=== PATIENT | male | born 1985 | race American Indian/Alaskan Native ===

== ENCOUNTER 2017-07-28 23:06 | Emergency (ER) | payer MEDICAID ==
[2017-07-29 00:48] LABS: Basophils # (Auto) 0.1 K/mm3 (0.0-0.1); Basophils % (Auto) 0.9 % (0.0-1.8); Eosinophils # (Auto) 0.1 K/mm3 (0.0-0.4); Eosinophils % (Auto) 2.2 % (0.0-4.3); Hematocrit 43.7 % (35.5-45.6); Hemoglobin 14.7 gm/dl (11.8-15.2); Lymphocytes # (Auto) 2.7 K/mm3 (1.2-5.4); Lymphocytes % (Auto) 44.6 % (13.4-35.0); Mean Corpuscular HGB Conc 34 % (32-34); Mean Corpuscular Hemoglobin 29 pg (28-32); Mean Corpuscular Volume 85 fl (84-94); Monocytes # (Auto) 0.3 K/mm3 (0.0-0.8); Monocytes % (Auto) 5.3 % (0.0-7.3); Platelet Count 269 K/mm3 (140-440); Red Blood Count 5.15 M/mm3 (3.65-5.03); Red Cell Distribution Width 14.1 % (13.2-15.2)
[2017-07-29 01:10] LABS: BUN/Creatinine Ratio 9; Blood Urea Nitrogen 11 mg/dL (9-20); Calcium 9.3 mg/dL (8.4-10.2); Hemolysis Index 23
[2017-07-29] MEDS ORDERED: MILK OF MAGNESIA PO PRN (01:45)
[2017-07-29] MEDS ORDERED: TYLENOL PO PRN (01:45)
[2017-07-29] MEDS ORDERED: ALUM-MAG HYDROX-SIMETH 200-200-20MG/5ML PO PRN (01:45)
--- NOTE | 2017-07-29 01:51 | Emergency Department Report ---
HPI - General Chief Complaint: Psych Time Seen by Provider: 07/29/17 01:44 - HPI HPI: The patient is 32-year-old male with a history of schizophrenia who presents for evaluation of mental health. The patient reports constant severe sadness and feelings of hopelessness for the past 2-3 days, associated with suicidal ideations and hearing voices. The patient denies fever, headache, unexplained weight loss or weight gain, heat or cold intolerance, skin, hair, or nail changes, neuro deficits, homicidal ideations, or visual hallucinations. ED Past Medical Hx - Past Medical History Previous Medical History?: Yes Hx Psychiatric Treatment: Yes (paranoid schiz) - Surgical History Past Surgical History?: Yes Additional Surgical History: arm - Social History Smoking Status: Current Every Day Smoker Substance Use Type: None ED Review of Systems ROS: Stated complaint: SI Other details as noted in HPI Constitutional: denies: fever ENT: denies: throat or neck pain Respiratory: denies: cough, shortness of breath Cardiovascular: denies: chest pain Endocrine: denies unexplained weight loss or gain Gastrointestinal: denies: abdominal pain, nausea Genitourinary: denies: dysuria Musculoskeletal: denies: leg swelling Skin: denies: rash Neurological: denies: headache Hematological/Lymphatic: denies: easy bleeding or easy bruising Psych:reports sadness or hopelessness Physical Exam - Physical Exam Vital Signs: Vital Signs 07/29/17 00:22 Temperature 97.7 F Pulse Rate 57 L Respiratory 20 Rate Blood Pressure 122/80 O2 Sat by Pulse 99 Oximetry Physical Exam: General: well-nourished, well-developed, no acute distress Head: Normocephalic, atraumatic Eyes: normal sclera ENT: Mucous membranes are pink and moist Neck: trachea midline, neck supple, No neck stiffness, no cervical adenopathy Respiratory: Breath sounds equal bilaterally, no wheezing, rales, or rhonchi Cardio: S1 and S2 present, no murmurs, rubs, gallops, capillary refill is brisk Abdomen: Normoactive bowel sounds, soft abdomen, no rigidity, no guarding or rebound tenderness Musc: No pitting edema Skin: No rash Neuro: no facial drooping, normal speech Psych: Flat affect, poor insight, depressed mood, positive suicidal ideation ED Course Vital Signs 07/29/17 00:22 Temperature 97.7 F Pulse Rate 57 L Respiratory 20 Rate Blood Pressure 122/80 O2 Sat by Pulse 99 Oximetry ED Medical Decision Making - Lab Data Result diagrams: 07/29/17 00:33 07/29/17 00:33 - Medical Decision Making The patient was seen and examined by myself. The patient is placed on a court monitor and continuous pulse ox. On initial evaluation, the patient was found to be in no distress. Labs are obtained. Lab results are grossly unremarkable. The patient is medically clear. Mental health is consulted. Mental health evaluates the patient and agrees that the patient is at risk of harm to self. A 1013 is completed. The patient will be admitted to a psychiatric facility once bed placement is obtained. Critical care attestation.: If time is entered above; I have spent that time in minutes in the direct care of this critically ill patient, excluding procedure time. ED Disposition Clinical Impression: Acute schizophrenia, Suicidal ideation Disposition: DC/TX-65 PSY HOSP/PSY UNIT Is pt being admited?: No Does the pt Need Aspirin: No Condition: Serious Referrals: ARACELI CHA MD [Primary Care Provider] - 3-5 Days Time of Disposition: 01:46
[2017-07-29 10:51] LABS: Bilirubin,Urine NEG (Negative); Blood,Urine NEG (Negative); Color,Urine Yellow (Yellow); Mucus,Urine FEW /HPF; Protein,Urine <15 mg/dL mg/dL (Negative); WBC,Urine < 1.0 /HPF (0.0-6.0)
[2017-07-29 11:10] LABS: Amphetamine Screen,Urine PRESUMPTIVE NEGATIVE; Benzodiazepines Screen,Urine PRESUMPTIVE NEGATIVE; Cannabinoid Screen,Urine PRESUMPTIVE NEGATIVE; Methadone Screen,Urine PRESUMPTIVE NEGATIVE; Opiate Screen,Urine PRESUMPTIVE NEGATIVE
[2017-07-29 11:24] LABS: Cocaine Screen,Urine PRESUMPTIVE POSITIVE
--- NOTE | 2017-07-29 15:07 | Consultation ---
History of Present Illness - Reason for Consult Consult date: 07/29/17 Reason for consult: Mental Health Evaluation Requesting physician: KVNG POP - Chief Complaint Chief complaint: "I am tired of everything" - History of Present Psychiatric Illness 32 y.o. AA male presenting to [facility] for SI's and AH's. Today the patient is calm , but withdrawn during the assessment. He stated that he is tired of his life and want to move out of [place]. He stated that he is experiencing voices telling him he's "worthless." He would not elaborate more about being worthless when asked. I had to interject several times during the interview, because the patient was tangent and very talkative. He would not confirm or deny being suicidal. He stated that he took Seroquel when he was hospitalized several months ago. He stated that he does not have a psychiatrist at this time. He denies HI's and VH's. He denies a poor appetite, but admitted to erratic sleep. He rate his depression 7/10, with 10 being the worse. He denies recreational drug use, but positive for cocaine. He denies excessive alcohol consumption ( etoh). Medications and Allergies Allergies Allergy/AdvReac Type Severity Reaction Status Date / Time No Known Allergies Allergy Unverified 07/29/17 00:22 Active Meds: Active Medications Acetaminophen (Tylenol) 650 mg PO Q4HR PRN PRN Reason: Pain MILD(1-3)/Fever >100.5/NOGUERA Al Hydrox/Mg Hydrox/Simethicone (Alum-Mag Hydrox-Simeth 252-031-21on/5ml) 30 ml PO Q4HR PRN PRN Reason: Indigestion Magnesium Hydroxide (Milk Of Magnesia) 30 ml PO Q12HR PRN PRN Reason: Constipation Past psychiatric history - Past Medical History Past Medical History: other (Fx wrist) Past Surgical History: No surgical history - past Psychiatric treatment and history psychiatric treatment history: Multiple inpatient psy services. He cannot confirm or deny a fam psy hx. - Social History Social history: lives with family Mental Status Exam - Vital signs Last Vital Signs Temp 97.7 F 07/29/17 00:22 Pulse 57 L 07/29/17 00:22 Resp 20 07/29/17 10:27 BP 122/80 07/29/17 00:22 Pulse Ox 99 07/29/17 10:27 - Exam Narrative exam: MSE: Appearance: calm Behavior: regular eye contact Speech: hyper verbal Mood: "depressed" Affect: congruent to mood Thought Process: circumstantial Thought Content: denies HI's and VH's Motor Activity: ambulatory Cognition: A/O x3 Insight: variable Judgment: variable Results Result Diagrams: 07/29/17 00:33 07/29/17 00:33 Abnormal lab results 07/29/17 07/29/17 07/29/17 Range/Units 00:33 00:33 00:33 RBC 5.15 H (3.65-5.03) M/mm3 Lymph % (Auto) 44.6 H (13.4-35.0) % Glucose 127 H (75-100) mg/dL Salicylates < 0.3 L (2.8-20.0) mg/dL All other labs normal. Assessment and Plan Assessment and plan: Impression: Unspecified Mood DO with psy features. Substance Use DO (cocaine). Today the patient is calm, but withdrawn during the assessment. DDx: Bipolar DO, R/O Schizoaffective DO, R/O MDD with psychosis Recommendation/Plan: Continue 1013 with placement to inpatient psy services. Start Seroquel 200 mg PO HS for mood/psychosis. Discussed possible metabolic side effects of Seroquel with patient.
--- NOTE | 2017-07-30 17:05 | Progress Note ---
Subjective - Reason for Consult Consult date: 07/30/17 Reason for consult: follow up - Chief Complaint Chief complaint: "I'm not good." 32 y.o. AA male presenting to [facility] for SI's and AH's. During previous assessments, the record indicates he stated that he is tired of his life and want to move out of [place]. Per the record he stated that he is experiencing voices telling him he's "worthless." His behavior was threatening. Staff had to intervene. He is agitated and further information was not able to be obtained from him today. Mental Status Exam - Vital signs Last Vital Signs Temp 98.2 F 07/30/17 07:50 Pulse 76 07/30/17 07:50 Resp 20 07/30/17 13:54 BP 120/75 07/30/17 07:50 Pulse Ox 100 07/30/17 13:54 - Exam Narrative exam: MSE: Appearance: agitated Behavior: regular eye contact Speech: loud Mood: agitated Affect: congruent to mood Thought Process: tangential Thought Content: unable to assess Motor Activity: ambulatory Cognition: A/O x3 Insight: variable Judgment: variable Assessment and Plan Impression: Unspecified Mood DO with psy features. Substance Use DO (cocaine). Today the patient is calm, but withdrawn during the assessment. DDx: Bipolar DO, R/O Schizoaffective DO, R/O MDD with psychosis Recommendation/Plan: Continue 1013 with placement to inpatient psy services. Continue Seroquel 200 mg PO HS for mood/psychosis.
--- NOTE | 2017-07-31 16:13 | Progress Note ---
Subjective - Reason for Consult Consult date: 07/31/17 Reason for consult: follow up - Chief Complaint Chief complaint: "I'm about the same." 32 y.o. AA male presenting to [facility] for SI's and AH's. During previous assessments, the record indicates he stated that he is tired of his life and want to move out of [place]. Per the record he stated that he is experiencing voices telling him he's "worthless." The record indicates he was verbally aggressive with staff. He was willing to participate in interview today. He reports being easily agitated and hearing voices. He also reports suicidal ideation and homicidal ideation. HI is for no one in particular. Mental Status Exam - Vital signs Last Vital Signs Temp 98.0 F 07/30/17 20:52 Pulse 76 07/31/17 09:39 Resp 18 07/31/17 09:39 BP 101/53 07/31/17 09:39 Pulse Ox 97 07/30/17 20:52 - Exam Narrative exam: MSE: Appearance: agitated Behavior: regular eye contact Speech: regular rate/rhythm Mood: agitated Affect: congruent to mood Thought Process: logical Thought Content: SI/HI and AH Motor Activity: ambulatory Cognition: A/O x3 Insight: variable Judgment: variable Assessment and Plan Impression: Unspecified Mood DO with psy features. Substance Use DO (cocaine). Today the patient is calm and cooperative during the assessment. DDx: Bipolar DO, R/O Schizoaffective DO, R/O MDD with psychosis Recommendation/Plan: Continue 1013 with placement to inpatient psy services. Increase seroquel to 300mg PO HS for mood/psychosis.
[2017-07-31] MEDS ORDERED: ATIVAN IM PRN (20:43)
[2017-08-01 08:42] VITALS: BP 104/54
--- NOTE | 2017-08-01 09:55 | Progress Note ---
Subjective - Reason for Consult Consult date: 08/01/17 Reason for consult: Psychiatry Follow-up - Chief Complaint Chief complaint: "I am in bad shape" 32 y.o. AA male presenting to [facility] for SI's and AH's. During previous assessments, the record indicates he stated that he is tired of his life and want to move out of [place]. Today the patient is calm during the assessment. He stated that he "hate" the staff and want to leave. He stated that the voices are still active and he endorses SI's without a plan. He denies HI's and VH's. He denies any side effects of his medication. Mental Status Exam - Vital signs Last Vital Signs Temp 98 F 08/01/17 08:41 Pulse 55 L 08/01/17 08:41 Resp 14 08/01/17 08:41 BP 104/54 08/01/17 08:41 Pulse Ox 97 08/01/17 08:41 - Exam Narrative exam: MSE: Appearance: calm Behavior: regular eye contact Speech: regular rate and tone Mood: "okay" Affect: congruent to mood Thought Process: circumstantial Thought Content: denies HI's and VH's Motor Activity: ambulatory Cognition: A/O x3 Insight: variable Judgment: variable Assessment and Plan Impression: Unspecified Mood DO with psy features. Substance Use DO (cocaine). Today the patient is calm and cooperative during the assessment. DDx: Bipolar DO, R/O Schizoaffective DO, R/O MDD with psychosis Recommendation/Plan: Continue 1013 with placement to [facility] today, pending transport time. Continue Seroquel to 300mg PO HS for mood/psychosis. Discussed possible metabolic side effects of Seroquel with patient.
== END 2017-08-01 13:40 ==
LOC: ED 23:06 → EEVIPCON 23:06 → ED 08-01 13:40
DX: F20.9 Schizophrenia, unspecified (principal); F14.10 Cocaine abuse, uncomplicated; F17.200 Nicotine dependence, unspecified, uncomplicated; Z79.899 Other long term (current) drug therapy
CPT/HCPCS: 36415; 80048; 80307; 81001; 85025; 99285; G0480; J2060; 80320; 99284

== ENCOUNTER 2017-08-28 17:30 | Emergency (ER) | payer MEDICAID ==
[2017-08-28 17:42] VITALS: BP 128/90
[2017-08-28] MEDS ORDERED: MOTRIN PO ONE (18:03)
--- NOTE | 2017-08-28 18:08 | Emergency Department Report ---
ED ENT HPI - General Chief complaint: Dental/Oral Stated complaint: TOOTHACHE Time Seen by Provider: 08/28/17 17:45 Source: patient Mode of arrival: Ambulatory Limitations: No Limitations - History of Present Illness Initial comments: This is a 32-year-old male nontoxic, well nourished in appearance, no acute signs of distress presents to the ED with c/o of toothache. Patient stated this is acute on chronic toothache and symptoms reoccurred 3-4 days ago. Patient denies any facial swelling, drooling, hoarseness, numbness, tingling, chest pain, shortness of breath, back pain, headache or stiff neck. Patient denies any allergies or significant past medical history. MD complaint: tooth pain -: days(s) (4) Location: tooth # 1 - pain Severity: mild Severity scale (0 -10): 8 Quality: aching Consistency: constant Improves with: none Worsens with: none Associated Symptoms: gum swelling, toothache. denies: fever, cough, pain with swallowing, sore throat, tinnitus, hearing loss, discharge from ear, rhinorrhea - Related Data Previous Rx's Medication Instructions Recorded Last Taken Type Amoxicillin/Potassium Clav 1 each PO Q12H #20 tablet 08/28/17 Unknown Rx [Augmentin 500-125 Tablet] Chlorhexidine Mouthwash [Peridex] 15 ml MM BID #1 bottle 08/28/17 Unknown Rx Ibuprofen [Motrin] 600 mg PO Q8H PRN #30 tablet 08/28/17 Unknown Rx Allergies Allergy/AdvReac Type Severity Reaction Status Date / Time No Known Allergies Allergy Unverified 07/29/17 00:22 ED Dental HPI - General Chief complaint: Dental/Oral Stated complaint: TOOTHACHE Time Seen by Provider: 08/28/17 17:45 Source: patient Mode of arrival: Ambulatory Limitations: No Limitations - Related Data Previous Rx's Medication Instructions Recorded Last Taken Type Amoxicillin/Potassium Clav 1 each PO Q12H #20 tablet 08/28/17 Unknown Rx [Augmentin 500-125 Tablet] Chlorhexidine Mouthwash [Peridex] 15 ml MM BID #1 bottle 08/28/17 Unknown Rx Ibuprofen [Motrin] 600 mg PO Q8H PRN #30 tablet 08/28/17 Unknown Rx Allergies Allergy/AdvReac Type Severity Reaction Status Date / Time No Known Allergies Allergy Unverified 07/29/17 00:22 ED Review of Systems ROS: Stated complaint: TOOTHACHE Other details as noted in HPI Constitutional: denies: chills, fever Eyes: denies: eye pain, eye discharge, vision change ENT: dental pain. denies: ear pain, throat pain Respiratory: denies: cough, shortness of breath, wheezing Cardiovascular: denies: chest pain, palpitations Endocrine: no symptoms reported Gastrointestinal: denies: abdominal pain, nausea, diarrhea Genitourinary: denies: urgency, dysuria Musculoskeletal: denies: back pain, joint swelling, arthralgia Skin: denies: rash, lesions Neurological: denies: headache, weakness, paresthesias Psychiatric: denies: anxiety, depression Hematological/Lymphatic: denies: easy bleeding, easy bruising ED Past Medical Hx - Past Medical History Previous Medical History?: Yes Hx Psychiatric Treatment: Yes (paranoid schiz) - Surgical History Past Surgical History?: Yes Additional Surgical History: arm , left thumb surgery - Social History Smoking Status: Current Every Day Smoker Substance Use Type: Marijuana - Medications Home Medications: Home Medications Medication Instructions Recorded Confirmed Last Taken Type Amoxicillin/Potassium Clav 1 each PO Q12H #20 tablet 08/28/17 Unknown Rx [Augmentin 500-125 Tablet] Chlorhexidine Mouthwash [Peridex] 15 ml MM BID #1 bottle 08/28/17 Unknown Rx Ibuprofen [Motrin] 600 mg PO Q8H PRN #30 tablet 08/28/17 Unknown Rx ED Physical Exam - General Limitations: No Limitations General appearance: alert, in no apparent distress - Head Head exam: Present: atraumatic, normocephalic - Eye Eye exam: Present: normal appearance Pupils: Present: normal accommodation - ENT ENT exam: Present: mucous membranes moist, TM's normal bilaterally, normal external ear exam - Expanded ENT Exam Expanded Ear exam: Present: normal external inspection Mouth exam: Present: normal external inspection, tongue normal. Absent: drooling, trismus, muffled voice, tongue elevation, laceration Teeth exam: Present: dental caries, dental tenderness #, gingival enlargement, other (no facial swelling) 1 - Dental Tenderness Throat exam: Positive: normal inspection, other (Uvula midline. No abscess or swelling noted. ). Negative: tonsillar erythema, tonsillomegaly, tonsillar exudate, R peritonsillar mass, L peritonsillar mass - Neck Neck exam: Present: normal inspection, full ROM. Absent: tenderness, meningismus, lymphadenopathy - Respiratory Respiratory exam: Present: normal lung sounds bilaterally. Absent: respiratory distress - Cardiovascular Cardiovascular Exam: Present: regular rate, normal rhythm. Absent: systolic murmur, diastolic murmur, rubs, gallop - GI/Abdominal GI/Abdominal exam: Present: soft, normal bowel sounds - Rectal Rectal exam: Present: deferred - Extremities Exam Extremities exam: Present: normal inspection, full ROM, normal capillary refill - Back Exam Back exam: Present: normal inspection, full ROM - Neurological Exam Neurological exam: Present: alert, oriented X3, normal gait - Psychiatric Psychiatric exam: Present: normal affect, normal mood - Skin Skin exam: Present: warm, dry, intact, normal color. Absent: rash ED Course Vital Signs 08/28/17 17:39 Temperature 98.1 F Pulse Rate 94 H Respiratory 20 Rate Blood Pressure 128/90 O2 Sat by Pulse 98 Oximetry - Reevaluation(s) Reevaluation #1: 08/28/17 18:06 Patient is speaking in full sentences with no signs of distress noted. Critical care attestation.: If time is entered above; I have spent that time in minutes in the direct care of this critically ill patient, excluding procedure time. ED Disposition Clinical Impression: Toothache, Gingivitis Disposition: - TO HOME OR SELFCARE Is pt being admited?: No Does the pt Need Aspirin: No Condition: Stable Instructions: Toothache (ED), Gingivitis (ED), Ibuprofen (By mouth), Amoxicillin/Clavulanate Potassium (By mouth) Additional Instructions: Follow-up with a dentist in 3-5 days or if symptoms worsen and continue return to emergency room as soon as possible. Prescriptions: Amoxicillin/Potassium Clav [Augmentin 500-125 Tablet] 1 each PO Q12H #20 tablet Chlorhexidine Mouthwash [Peridex] 15 ml MM BID #1 bottle Ibuprofen [Motrin] 600 mg PO Q8H PRN #30 tablet PRN Reason: Pain Referrals: PRIMARY CARE, [Primary Care Provider] - 3-5 Days WILIAN SAHNI MD [Staff Physician] - 3-5 Days [facility] [Outside] - 3-5 Days Forms: Work/School Release Form(ED)
== END 2017-08-28 18:16 | disposition home or self-care (01) ==
LOC: ED 17:30
DX: K05.10 Chronic gingivitis, plaque induced (principal); F17.200 Nicotine dependence, unspecified, uncomplicated; F12.10 Cannabis abuse, uncomplicated
CPT/HCPCS: 99282

== ENCOUNTER 2017-09-10 02:39 | Emergency (ER) | payer MEDICAID ==
[2017-09-10 03:47] LABS: Basophils # (Auto) 0.1 K/mm3 (0.0-0.1); Basophils % (Auto) 0.7 % (0.0-1.8); Eosinophils # (Auto) 0.3 K/mm3 (0.0-0.4); Hematocrit 43.3 % (35.5-45.6); Hemoglobin 14.8 gm/dl (11.8-15.2); Lymphocytes # (Auto) 1.9 K/mm3 (1.2-5.4); Mean Corpuscular HGB Conc 34 % (32-34); Mean Corpuscular Hemoglobin 29 pg (28-32); Mean Corpuscular Volume 84 fl (84-94); Monocytes # (Auto) 0.4 K/mm3 (0.0-0.8); Monocytes % (Auto) 5.3 % (0.0-7.3); Platelet Count 256 K/mm3 (140-440); Red Blood Count 5.18 M/mm3 (3.65-5.03); Red Cell Distribution Width 13.8 % (13.2-15.2)
[2017-09-10 04:06] LABS: BUN/Creatinine Ratio 7; Blood Urea Nitrogen 8 mg/dL (9-20); Calcium 9.1 mg/dL (8.4-10.2); Hemolysis Index 4
[2017-09-10 05:21] LABS: Bilirubin,Urine NEG (Negative); Blood,Urine NEG (Negative); Color,Urine Straw (Yellow); Mucus,Urine FEW /HPF; Protein,Urine <15 mg/dL mg/dL (Negative); Urobilinogen,Urine < 2.0 mg/dL (<2.0); WBC,Urine < 1.0 /HPF (0.0-6.0)
[2017-09-10 05:30] LABS: Amphetamine Screen,Urine PRESUMPTIVE NEGATIVE; Benzodiazepines Screen,Urine PRESUMPTIVE NEGATIVE; Cannabinoid Screen,Urine PRESUMPTIVE NEGATIVE; Methadone Screen,Urine PRESUMPTIVE NEGATIVE; Opiate Screen,Urine PRESUMPTIVE NEGATIVE
[2017-09-10 05:42] LABS: Cocaine Screen,Urine PRESUMPTIVE POSITIVE
[2017-09-10] MEDS ORDERED: NACL 0.9% 1000 ML 1,000 ML IV ONE (08:18)
[2017-09-10] MEDS ORDERED: ALUM-MAG HYDROX-SIMETH 200-200-20MG/5ML PO PRN (08:19)
[2017-09-10] MEDS ORDERED: TYLENOL PO PRN (08:19)
[2017-09-10] MEDS ORDERED: MILK OF MAGNESIA PO PRN (08:19)
--- NOTE | 2017-09-10 08:21 | Emergency Department Report ---
HPI - General Chief Complaint: Psych Time Seen by Provider: 09/10/17 04:14 - HPI HPI: The patient is a 32-year-old male with a history of depression, presents for mental health evaluation. The patient reports 1 day of recurrence of constant severe depression and hopelessness, exacerbated with drug use, associated with suicidal ideations. He denies having a plan for completion of suicide. The patient denies fever, headache, unexplained weight loss or weight gain, heat or cold intolerance, skin, hair, or nail changes, neuro deficits, homicidal ideations, or auditory or visual hallucinations. ED Past Medical Hx - Past Medical History Previous Medical History?: Yes Hx Psychiatric Treatment: Yes (paranoid schiz) - Surgical History Past Surgical History?: Yes Additional Surgical History: arm , left thumb surgery - Social History Smoking Status: Current Every Day Smoker Substance Use Type: Cocaine, Marijuana - Medications Home Medications: Home Medications Medication Instructions Recorded Confirmed Last Taken Type No Known Home Medications [No 09/10/17 09/10/17 Unknown History Reported Home Medications] ED Review of Systems ROS: Stated complaint: SI/HI, HEARING VOICES Other details as noted in HPI Constitutional: denies: fever ENT: denies: throat or neck pain Respiratory: denies: cough, shortness of breath Cardiovascular: denies: chest pain Endocrine: denies unexplained weight loss or gain Gastrointestinal: denies: abdominal pain, nausea Genitourinary: denies: dysuria Musculoskeletal: denies: leg swelling Skin: denies: rash Neurological: denies: headache Hematological/Lymphatic: denies: easy bleeding or easy bruising Psych: reports sadness or hopelessness Physical Exam - Physical Exam Vital Signs: Vital Signs 09/10/17 09/10/17 02:45 03:52 Temperature 98.4 F 98.3 F Pulse Rate 110 H 99 H Respiratory 20 18 Rate Blood Pressure 141/91 121/79 O2 Sat by Pulse 96 96 Oximetry Physical Exam: General: well-nourished, well-developed, no acute distress Head: Normocephalic, atraumatic Eyes: normal sclera ENT: Mucous membranes are pale and dry Neck: No neck stiffness, no cervical adenopathy Respiratory: Breath sounds equal bilaterally, no wheezing, rales, or rhonchi Cardio: S1 and S2 present, no murmurs, rubs, gallops, capillary refill is delayed Abdomen: Normoactive bowel sounds, soft abdomen, no tenderness Chest WALL/Back: No tenderness to palpation of the chest wall, no CVA tenderness with percussion Musc: No pitting edema Skin: No rash Neuro: no facial drooping, normal speech Psych: Flat affect, depressed mood, poor insight, positive suicidal ideation ED Course Vital Signs 09/10/17 09/10/17 02:45 03:52 Temperature 98.4 F 98.3 F Pulse Rate 110 H 99 H Respiratory 20 18 Rate Blood Pressure 141/91 121/79 O2 Sat by Pulse 96 96 Oximetry ED Medical Decision Making - Lab Data Result diagrams: 09/10/17 03:06 09/10/17 03:06 - Medical Decision Making The patient was seen and examined by myself. The patient is placed on a hall monitor and continuous pulse ox. On initial evaluation, the patient was found to be in no distress. Labs are obtained. The patient is given 1 L normal saline fluid bolus for treatment of his dehydration and tachycardia. Lab results revealed positive cocaine drug screen and otherwise labs are grossly unremarkable. The patient is medically clear. Mental health is consulted. Mental health evaluates the patient and agrees that the patient is at risk of harm to self. A 1013 is completed. The patient will be admitted to a psychiatric facility once bed placement is obtained. Critical care attestation.: If time is entered above; I have spent that time in minutes in the direct care of this critically ill patient, excluding procedure time. ED Disposition Clinical Impression: Suicidal ideation, Depression with suicidal ideation, Dehydration, mild Disposition: DC/TX-65 PSY HOSP/PSY UNIT Is pt being admited?: No Does the pt Need Aspirin: No Condition: Fair Referrals: PRIMARY CARE [Primary Care Provider] - 3-5 Days Time of Disposition: 08:22
[2017-09-10] MEDS ORDERED: ATIVAN IM ONE (08:29)
[2017-09-10] MEDS ORDERED: BENADRYL ONE (09:48)
[2017-09-10] MEDS ORDERED: BENADRYL IV ONE (09:50)
[2017-09-10] MEDS ORDERED: ATIVAN IV ONE (09:50)
[2017-09-10] MEDS ORDERED: ATIVAN ONE ×2 (16:25→19:58)
[2017-09-10] MEDS ORDERED: ATIVAN PO ONE (16:28)
[2017-09-10] MEDS ORDERED: HALDOL ONE (19:59)
[2017-09-10] MEDS: BENADRYL IM PRN (20:05)
[2017-09-10] MEDS ORDERED: HALDOL IM PRN (20:10)
[2017-09-11] MEDS ORDERED: ATIVAN ONE (16:50)
--- NOTE | 2017-09-11 17:00 | Consultation ---
History of Present Illness - Reason for Consult Consult date: 09/11/17 Reason for consult: Initial Psychiatric Evaluation - Chief Complaint Chief complaint: "Paranoid, suicidal, and hearing voices." - History of Present Psychiatric Illness Jl is a 32-year-old -Iranian male who presents to the emergency for psychosis. He has a past psychiatric history of schizophrenia, paranoid type. He reports his symptoms have been getting progressively worse throughout the week. He endorses paranoid thoughts and auditory hallucinations. He verbalizes that the voices are saying things such as "why am I around" and "I should kill people." He denies visual hallucinations. Endorses homicidal ideation secondary to auditory hallucinations. Also, he has suicidal ideations with a plan to shoot self. Patient states "I want a gun." He reports increase energy, appropriate appetite, and decrease sleep. Current medications: Seroquel, Lexapro, Celexa. Past psychiatric history: Schizophrenia (2005); more than 5 previous inpatient hospitalizations (Formerly [facility]); No suicide attempts reported or noted; No outpatient psychiatrist. Past psychiatric medication trials: Zyprexa, Risperdal, Geodon. Patient states he will not take any of these medications. History of trauma/abuse: He denies sexual, mental, or physical abuse. Drug/alcohol abuse history: Marijuana-varies; last use-2 weeks ago; First use- 12 years old; Cocaine-varies (everday); last use- 3-4 weeks ago; First Use- 20 years old. Social history: Eighth grade; Disability/SSI approximately $700; 0 children; single; poor support system. Family history: Patient denies. Medications and Allergies Allergies Allergy/AdvReac Type Severity Reaction Status Date / Time No Known Allergies Allergy Unverified 07/29/17 00:22 Home Medications Medication Instructions Recorded Confirmed Last Taken Type No Known Home Medications [No 09/10/17 09/10/17 Unknown History Reported Home Medications] Active Meds: Active Medications Acetaminophen (Tylenol) 650 mg PO Q4HR PRN PRN Reason: Pain MILD(1-3)/Fever >100.5/NOGUERA Al Hydrox/Mg Hydrox/Simethicone (Alum-Mag Hydrox-Simeth [phone]/5ml) 30 ml PO Q4HR PRN PRN Reason: Indigestion Diphenhydramine HCl (Benadryl) 50 mg IM Q6H PRN PRN Reason: agitation Stop: 09/14/17 20:05 Last Admin: 09/10/17 20:05 Dose: 50 mg Haloperidol Lactate (Haldol) 5 mg IM Q6H PRN PRN Reason: Agitation Stop: 09/14/17 20:09 Last Admin: 09/10/17 20:08 Dose: 5 mg Magnesium Hydroxide (Milk Of Magnesia) 30 ml PO Q12HR PRN PRN Reason: Constipation Mental Status Exam - Vital signs Last Vital Signs Temp 98.1 F 09/11/17 12:51 Pulse 79 09/11/17 12:51 Resp 18 09/11/17 12:51 BP 109/84 09/11/17 12:51 Pulse Ox 97 09/11/17 12:51 - Exam Narrative exam: Mental Status Exam: General Appearance: Casually dressed-hospital gown Eye Contact: Intermittent Attitude/Behavior: Cooperative Sensorium: Distracted Orientation: Alert and oriented x 4 ( person, place, time, date, and situation) Psychomotor & Musculoskeletal Activity: Ambulatory Mood: " Anxious and down." Anxious, depressed, and irritable Affect: Constricted Speech/Language: Normal rate and tone Thought Process: Circumstantial Thought Content: Delusional-paranoid Perception: + AH Suicidal Ideation/Plan: " I want a gun." Homicidal Ideation/Plan " The people who keep messing with me." Judgment: Poor Insight: Poor Results Result Diagrams: 09/10/17 03:06 09/10/17 03:06 All other labs normal. Assessment and Plan Assessment and plan: Jl is a 32 year old AAM who presents to the emergency room with psychosis. PPHx of Schizophrenia, paranoid type. Today patient is anxious, depressed, and irritable. He endorses SI/HI and psychosis. DDx: Unspecified Psychosis r/o Schizophrenia r/o Schizoaffective Disorder, Bipolar Type Recommendations/plan: 1. Will continue 1013 and assist with placement to an inpatient psychiatric facility. 2. Begin Seroquel 50 mg by mouth daily at bedtime for psychosis/mood. Begin Celexa 10 mg by mouth every morning for depression and anxiety. 3. Educated patient on the black box warning for Celexa in regards to increase suicidal/homicidal thoughts as well as metabolic side effects in regards to Seroquel.
[2017-09-11] MEDS ORDERED: ATIVAN IV ONE (17:04)
[2017-09-12] MEDS: celeXA PO SCH (09:45)
[2017-09-12] MEDS: BENADRYL IM PRN (11:16)
--- NOTE | 2017-09-12 13:06 | Progress Note ---
Subjective - Reason for Consult Consult date: 09/12/17 Reason for consult: Psychiatry Follow-up - Chief Complaint Chief complaint: ""People need to leave me alone" 32-year-old -[place] male who presents to the emergency or psychosis. Today the patient is cooperative, but paranoid during the assessment. The patient had to be redirected several time to keep him on topic. He is delusional about "people" bothering him. He could not elaborate more when asked about these "people." He stated that the voices are telling him to kill himself. The patient pauses during the interview and look down the magana, possibly responding to some type of stimuli. He continue to endorse SI's, but he does not have a plan. He denies HI's and VH's. He denies any side effects of his medications. Mental Status Exam - Vital signs Last Vital Signs Temp 98.8 F 09/11/17 21:00 Pulse 94 H 09/11/17 21:00 Resp 18 09/11/17 21:00 BP 117/77 09/11/17 21:00 Pulse Ox 96 09/11/17 21:00 - Exam Narrative exam: MSE: Appearance: cooperative Behavior: regular eye contact Speech: regular rate and tone Mood: "okay" Affect: normal Thought Process: tangential Thought Content: denies SI/HI's and VH's, delusional, paranoia Motor Activity: ambulatory Cognition: A/O x3 Insight: poor Judgment: poor Assessment and Plan Impression: Unspecified Psychotic/Mood DO. Substance Use DO. Today the patient is cooperative, but paranoid during the assessment. The patient endorses SI's. QTC 398 09/12/2017. DDx: R/O Bipolar DO, R/O Schizoaffective DO, Schizophrenia, R/O MDD, R/O Substance Induced Psychotic/Mood DO Recommendation/Plan: Continue 1013 with placement to inpatient psy services. Increase Seroquel to 100 mg PO HS for psychosis/mood and continue Celexa 10 mg PO for depression. Discussed possible metabolic side effects of Seroquel. Discussed possible suicidality/medication induced emily with patient reference Celexa. Discussed possible QTC prolongation with patient reference Seroquel and Celexa.
[2017-09-13] MEDS: celeXA PO SCH (10:32)
[2017-09-13] MEDS ORDERED: DESYREL PO PRN (10:48)
--- NOTE | 2017-09-13 10:51 | Progress Note ---
Subjective - Reason for Consult Consult date: 09/13/17 Reason for consult: Psychiatry Follow-up - Chief Complaint Chief complaint: "People are still bothering me" 32-year-old -Burmese male who presents to the emergency or psychosis. Today the patient is cooperative, but still paranoid during the assessment. He stated that the voices are louder today and he would like for them to stop. He is adamant about wanting to be transferred to a mental health facility. He stated that he prefer a facility out of [place] to get away from "the people." He denies HI's and VH's. He stated not getting sleep last night. He denies any side effects of his medication. Mental Status Exam - Vital signs Last Vital Signs Temp 98.6 F 09/12/17 20:00 Pulse 85 09/12/17 20:00 Resp 18 09/12/17 20:00 BP 137/82 09/12/17 20:00 Pulse Ox 98 09/12/17 20:00 - Exam Narrative exam: MSE: Appearance: calm, cooperative Behavior: regular eye contact Speech: regular rate and tone Mood: "okay" Affect: normal Thought Process: tangential Thought Content: denies HI's and VH's, delusional, paranoia Motor Activity: ambulatory Cognition: A/O x3 Insight: poor Judgment: poor Assessment and Plan Impression: Unspecified Psychotic/Mood DO. Substance Use DO. Today the patient is cooperative, but still paranoid during the assessment. The patient endorses SI's. QTC 398 09/12/2017. DDx: R/O Bipolar DO, R/O Schizoaffective DO, Schizophrenia, R/O MDD, R/O Substance Induced Psychotic/Mood DO Recommendation/Plan: Continue 1013 with placement to inpatient psy services. Increase Seroquel to 200 mg PO HS for psychosis/mood and continue Celexa 10 mg PO for depression. Start Trazodone 50 mg PO HS PRN for sleep. Discussed possible metabolic side effects of Seroquel with patient. Discussed possible suicidality/medication induced emily with patient reference Celexa. Discussed possible QTC prolongation with patient reference Seroquel and Celexa.
[2017-09-13 12:44] VITALS: BP 113/76
== END 2017-09-13 14:19 ==
LOC: ED 02:39 → EEVIPCON 02:39 → ED 09-13 14:19
DX: R45.851 Suicidal ideations (principal); F20.0 Paranoid schizophrenia; E86.0 Dehydration; F14.10 Cocaine abuse, uncomplicated; F12.10 Cannabis abuse, uncomplicated; F17.200 Nicotine dependence, unspecified, uncomplicated
CPT/HCPCS: 36415; 80048; 80307; 81001; 85025; 96361; 96372; 96374; 96375; 96376; 99285; G0480; J1200; J1630; J2060; J7030; 80320

== ENCOUNTER 2017-09-27 10:38 | Emergency (ER) | payer MEDICAID ==
[2017-09-27 11:16] VITALS: BP 119/77
[2017-09-27] MEDS ORDERED: XYLOCAINE 1% MPF 5 mL INFILTRATI ONE (12:21)
[2017-09-27] MEDS ORDERED: ROCEPHIN IM ONE (12:21)
[2017-09-27] MEDS ORDERED: ZITHROMAX PO ONE (12:22)
--- NOTE | 2017-09-27 12:26 | Emergency Department Report ---
HPI - General Chief Complaint: Urogenital-Male Time Seen by Provider: 09/27/17 12:22 - HPI HPI: patient is here with penile discharge, consistent with prior gc/chlamydia infection. no fever, no n/v, no diarrhea, no chest pain or sob. ED Past Medical Hx - Past Medical History Previous Medical History?: Yes Hx Psychiatric Treatment: Yes (paranoid schiz) - Surgical History Past Surgical History?: Yes Additional Surgical History: arm , left thumb surgery - Social History Smoking Status: Current Every Day Smoker Substance Use Type: Alcohol - Medications Home Medications: Home Medications Medication Instructions Recorded Confirmed Last Taken Type metroNIDAZOLE [Metronidazole] 500 mg PO ACHS #20 tablet 09/27/17 Unknown Rx ED Review of Systems ROS: Stated complaint: DISCHARGE SARAH PENIS Other details as noted in HPI Comment: All other systems reviewed and negative Cardiovascular: denies: chest pain, palpitations Endocrine: denies: no symptoms reported Gastrointestinal: denies: abdominal pain, nausea Genitourinary: discharge Physical Exam - Physical Exam Vital Signs: Vital Signs 09/27/17 11:14 Temperature 98 F Pulse Rate 80 Respiratory 20 Rate Blood Pressure 119/77 O2 Sat by Pulse 97 Oximetry Physical Exam: GENERAL APPEARANCE: Well developed, well nourished, alert and cooperative, and appears to be in no acute distress. HEAD: normocephalic. EYES: PERRL, EOMI. Fundi normal, vision is grossly intact. EARS: External auditory canals and tympanic membranes clear, hearing grossly intact. NOSE: No nasal discharge. THROAT: Oral cavity and pharynx normal. No inflammation, swelling, exudate, or lesions. Teeth and gingiva in good general condition. NECK: Neck supple, non-tender without lymphadenopathy, masses or thyromegaly. CARDIAC: Normal S1 and S2. No S3, S4 or murmurs. Rhythm is regular. There is no peripheral edema, cyanosis or pallor. Extremities are warm and well perfused. Capillary refill is less than 2 seconds. No carotid bruits. LUNGS: Clear to auscultation and percussion without rales, rhonchi, wheezing or diminished breath sounds. ABDOMEN: Positive bowel sounds. Soft, nondistended, nontender. No guarding or rebound. No masses. MUSKULOSKELETAL: Adequately aligned spine. ROM intact spine and extremities. No joint erythema or tenderness. Normal muscular development. Normal gait. - cream colored penile d/c, no penile erythema or lesions. ED Course Vital Signs 09/27/17 11:14 Temperature 98 F Pulse Rate 80 Respiratory 20 Rate Blood Pressure 119/77 O2 Sat by Pulse 97 Oximetry Critical care attestation.: If time is entered above; I have spent that time in minutes in the direct care of this critically ill patient, excluding procedure time. ED Disposition Clinical Impression: Urethritis, unspecified Disposition: DC-01 TO HOME OR SELFCARE Is pt being admited?: No Does the pt Need Aspirin: No Condition: Stable Prescriptions: metroNIDAZOLE [Metronidazole] 500 mg PO ACHS #20 tablet Referrals: PRIMARY CARE, [Primary Care Provider] - 3-5 Days Forms: STI Treatment and Prevention
== END 2017-09-27 12:29 | disposition home or self-care (01) ==
LOC: ED 10:38
DX: N34.2 Other urethritis (principal); F20.0 Paranoid schizophrenia; F17.200 Nicotine dependence, unspecified, uncomplicated
CPT/HCPCS: 96372; 99282; J0696

== ENCOUNTER 2018-01-14 17:15 | Emergency (ER) | payer MEDICAID ==
[2018-01-14 17:56] LABS: Bilirubin,Urine NEG (Negative); Blood,Urine NEG (Negative); Color,Urine Yellow (Yellow); Mucus,Urine FEW /HPF; Protein,Urine <15 mg/dL mg/dL (Negative)
[2018-01-14 18:01] LABS: Amphetamine Screen,Urine PRESUMPTIVE NEGATIVE; Benzodiazepines Screen,Urine PRESUMPTIVE NEGATIVE; Cannabinoid Screen,Urine PRESUMPTIVE NEGATIVE; Methadone Screen,Urine PRESUMPTIVE NEGATIVE; Opiate Screen,Urine PRESUMPTIVE NEGATIVE
[2018-01-14 18:18] LABS: Cocaine Screen,Urine PRESUMPTIVE POSITIVE
[2018-01-14 18:50] LABS: BUN/Creatinine Ratio 9; Blood Urea Nitrogen 11 mg/dL (9-20); Calcium 9.5 mg/dL (8.4-10.2); Hemolysis Index 33
[2018-01-14 19:25] LABS: Basophils % (Auto) 0.7 % (0.0-1.8); Eosinophils # (Auto) 0.1 K/mm3 (0.0-0.4); Eosinophils % (Auto) 1.4 % (0.0-4.3); Lymphocytes # (Auto) 2.2 K/mm3 (1.2-5.4); Lymphocytes % (Auto) 38.1 % (13.4-35.0); Mean Corpuscular HGB Conc 36 % (32-34); Mean Corpuscular Hemoglobin 31 pg (28-32); Mean Corpuscular Volume 86 fl (84-94); Monocytes # (Auto) 0.4 K/mm3 (0.0-0.8); Monocytes % (Auto) 7.9 % (0.0-7.3); Platelet Count 235 K/mm3 (140-440); Red Blood Count 5.13 M/mm3 (3.65-5.03); Red Cell Distribution Width 14.8 % (13.2-15.2)
[2018-01-14 19:26] LABS: Hematocrit 44.2 % (35.5-45.6); Hemoglobin 15.8 gm/dl (11.8-15.2)
--- NOTE | 2018-01-14 20:32 | Emergency Department Report ---
HPI - General Chief Complaint: Psych Time Seen by Provider: 01/14/18 20:20 - HPI HPI: [facility] [address] The patient is a 32-year-old male presenting with a chief complaint suicidal ideation and hallucinations. The patient has a history of paranoid schizophrenia and states the past 2-3 days he's had auditory and visual hallucinations, felt paranoid and suicidal. The patient states he has been walking into traffic but denies any other active attempts at harming himself. The patient states his auditory hallucinations include people telling him to kill himself and kill others. The patient states he also has been having visual hallucinations seen many different things he gives an example of seeing "mutants." Location: Mental state Duration: 2-3 days Quality: Suicidal, paranoid Severity: Severe Modifying factors: [see above] Context: [see above] Mode of transportation: [not driving] ED Past Medical Hx - Past Medical History Previous Medical History?: Yes Hx Psychiatric Treatment: Yes (paranoid schiz) - Surgical History Past Surgical History?: Yes Additional Surgical History: arm , left thumb surgery - Family History Family history: no significant - Social History Smoking Status: Current Every Day Smoker (1/2 pack per day) Substance Use Type: Cocaine - Medications Home Medications: Home Medications Medication Instructions Recorded Confirmed Last Taken Type metroNIDAZOLE [Metronidazole] 500 mg PO ACHS #20 tablet 09/27/17 Unknown Rx ED Review of Systems ROS: Stated complaint: MENTAL HEALTH Other details as noted in HPI Constitutional: no symptoms reported Eyes: denies: eye pain ENT: denies: throat pain Respiratory: no symptoms reported Cardiovascular: denies: chest pain Endocrine: no symptoms reported Gastrointestinal: denies: abdominal pain Genitourinary: denies: dysuria Musculoskeletal: denies: back pain Neurological: denies: headache Psychiatric: auditory hallucinations, visual hallucinations, suicidal thoughts Physical Exam - Physical Exam Vital Signs: Vital Signs 01/14/18 17:20 Temperature 98.4 F Pulse Rate 66 Respiratory 18 Rate Blood Pressure 123/80 O2 Sat by Pulse 100 Oximetry Physical Exam: GENERAL: The patient is well-developed well-nourished male lying on stretcher not appearing to be in acute distress. [] HEENT: Normocephalic. Atraumatic. Extraocular motions are intact. Patient has moist mucous membranes. NECK: Supple. Trachea midline CHEST/LUNGS: Clear to auscultation. There is no respiratory distress noted. HEART/CARDIOVASCULAR: Regular. There is no tachycardia. There is no gallop rub or murmur. ABDOMEN: Abdomen is soft, nontender. Patient has normal bowel sounds. There is no abdominal distention. SKIN: There is no rash. There is no edema. There is no diaphoresis. NEURO: The patient is awake, alert, and oriented. The patient is cooperative. The patient has normal speech and gait. MUSCULOSKELETAL: There is no evidence of acute injury. ED Course Vital Signs 01/14/18 17:20 Temperature 98.4 F Pulse Rate 66 Respiratory 18 Rate Blood Pressure 123/80 O2 Sat by Pulse 100 Oximetry ED Medical Decision Making - Lab Data Result diagrams: 01/14/18 18:25 01/14/18 18:25 Laboratory Tests 01/14/18 01/14/18 01/14/18 17:29 17:29 18:25 WBC RBC Hgb Hct MCV MCH MCHC RDW Plt Count Lymph % (Auto) [place] % (Auto) Eos % (Auto) Baso % (Auto) Lymph # [place] # Eos # Baso # Seg Neutrophils % Seg Neutrophils # Sodium Potassium Chloride Carbon Dioxide Anion Gap BUN Creatinine Estimated GFR BUN/Creatinine Ratio Glucose Calcium Urine Color Yellow Urine Turbidity Clear Urine pH 6.0 Ur Specific [place] 1.026 Urine Protein <15 mg/dl Urine Glucose (UA) Neg Urine Ketones Neg Urine Blood Neg Urine Nitrite Neg Urine Bilirubin Neg Urine Urobilinogen 2.0 Ur Leukocyte Esterase Neg Urine WBC (Auto) 1.0 Urine RBC (Auto) 3.0 U Epithel Cells (Auto) < 1.0 Urine Mucus Few Salicylates < 0.3 L Urine Opiates Screen Presumptive negative Urine Methadone Screen Presumptive negative Acetaminophen Ur Barbiturates Screen Presumptive negative Ur Phencyclidine Scrn Presumptive negative Ur Amphetamines Screen Presumptive negative U Benzodiazepines Scrn Presumptive negative Urine Cocaine Screen Presumptive positive U Marijuana (THC) Screen Presumptive negative Drugs of Abuse Note Disclamer Plasma/Serum Alcohol 01/14/18 01/14/18 01/14/18 18:25 18:25 18:25 WBC RBC Hgb Hct MCV MCH MCHC RDW Plt Count Lymph % (Auto) [place] % (Auto) Eos % (Auto) Baso % (Auto) Lymph # [place] # Eos # Baso # Seg Neutrophils % Seg Neutrophils # Sodium 139 Potassium 4.4 Chloride 102.4 Carbon Dioxide 26 Anion Gap 15 BUN 11 Creatinine 1.2 Estimated GFR > 60 BUN/Creatinine Ratio 9 Glucose 126 H Calcium 9.5 Urine Color Urine Turbidity Urine pH Ur Specific [place] Urine Protein Urine Glucose (UA) Urine Ketones Urine Blood Urine Nitrite Urine Bilirubin Urine Urobilinogen Ur Leukocyte Esterase Urine WBC (Auto) Urine RBC (Auto) U Epithel Cells (Auto) Urine Mucus Salicylates Urine Opiates Screen Urine Methadone Screen Acetaminophen < 5.0 L Ur Barbiturates Screen Ur Phencyclidine Scrn Ur Amphetamines Screen U Benzodiazepines Scrn Urine Cocaine Screen U Marijuana (THC) Screen Drugs of Abuse Note Plasma/Serum Alcohol < 0.01 01/14/18 18:25 WBC 5.7 RBC 5.13 H Hgb 15.8 H Hct 44.2 MCV 86 MCH 31 MCHC 36 H RDW 14.8 Plt Count 235 Lymph % (Auto) 38.1 H [place] % (Auto) 7.9 H Eos % (Auto) 1.4 Baso % (Auto) 0.7 Lymph # 2.2 [place] # 0.4 Eos # 0.1 Baso # 0.0 Seg Neutrophils % 51.9 Seg Neutrophils # 2.9 Sodium Potassium Chloride Carbon Dioxide Anion Gap BUN Creatinine Estimated GFR BUN/Creatinine Ratio Glucose Calcium Urine Color Urine Turbidity Urine pH Ur Specific [place] Urine Protein Urine Glucose (UA) Urine Ketones Urine Blood Urine Nitrite Urine Bilirubin Urine Urobilinogen Ur Leukocyte Esterase Urine WBC (Auto) Urine RBC (Auto) U Epithel Cells (Auto) Urine Mucus Salicylates Urine Opiates Screen Urine Methadone Screen Acetaminophen Ur Barbiturates Screen Ur Phencyclidine Scrn Ur Amphetamines Screen U Benzodiazepines Scrn Urine Cocaine Screen U Marijuana (THC) Screen Drugs of Abuse Note Plasma/Serum Alcohol - Differential Diagnosis suicidal ideation, auditory hallucinations, visual hallucinations, Critical care attestation.: If time is entered above; I have spent that time in minutes in the direct care of this critically ill patient, excluding procedure time. ED Disposition Clinical Impression: Suicidal ideation, Schizophrenia, Auditory hallucinations, Visual hallucinations Disposition: DC/TX-65 PSY HOSP/PSY UNIT Is pt being admited?: No Does the pt Need Aspirin: No Condition: Serious Referrals: PRIMARY CARE, [Primary Care Provider] - 3-5 Days Time of Disposition: 20:34 (awaiting acceptance)
[2018-01-15] MEDS ORDERED: BENADRYL IM PRN (01:15)
[2018-01-15] MEDS ORDERED: ATIVAN IM PRN (01:15)
[2018-01-15] MEDS ORDERED: HALDOL IM PRN (01:15)
--- NOTE | 2018-01-15 11:34 | Consultation ---
History of Present Illness - Reason for Consult Consult date: 01/15/18 Reason for consult: Mental Health Evaluation Requesting physician: LIEN DELANEY - Chief Complaint Chief complaint: "I don't have any thing to say" - History of Present Psychiatric Illness 32-year-old male presenting with a chief complaint suicidal ideation and hallucinations. Today the patient refused to talk/cooperate during the assessment. He stated, "I don't have anything to say." Per the staff, the patient has been agitated since his admission to the ER. Medications and Allergies Allergies Allergy/AdvReac Type Severity Reaction Status Date / Time seafood AdvReac Vomiting Uncoded 01/14/18 17:20 Home Medications Medication Instructions Recorded Confirmed Last Taken Type metroNIDAZOLE [Metronidazole] 500 mg PO ACHS #20 tablet 09/27/17 01/14/18 Unknown Rx Active Meds: Active Medications Diphenhydramine HCl (Benadryl) 50 mg IM Q6H PRN PRN Reason: Agitation Last Admin: 01/15/18 08:44 Dose: 50 mg Haloperidol Lactate (Haldol) 10 mg IM Q8H PRN PRN Reason: Agitation Lorazepam (Ativan) 2 mg IM Q8H PRN PRN Reason: Agitation Last Admin: 01/15/18 08:42 Dose: 2 mg Past psychiatric history - Past Medical History Past Medical History: other (Unable to obtain) Past Surgical History: Other (Unable to obtain) - past Psychiatric treatment and history psychiatric treatment history: Unable to obtain a psy hx and fam psy hx. - Social History Social history: other (Unable to obtain ) Mental Status Exam - Vital signs Last Vital Signs Temp 98.4 F 01/14/18 17:20 Pulse 66 01/14/18 17:20 Resp 18 01/14/18 17:20 BP 123/80 01/14/18 17:20 Pulse Ox 100 01/14/18 17:20 - Exam Narrative exam: Unable to complete a MSE because the patient refuse to cooperate. Results Result Diagrams: 01/14/18 18:25 01/14/18 18:25 Abnormal lab results 01/14/18 01/14/18 01/14/18 Range/Units 18:25 18:25 18:25 RBC (3.65-5.03) M/mm3 Hgb (11.8-15.2) gm/dl MCHC (32-34) % Lymph % (Auto) (13.4-35.0) % [place] % (Auto) (0.0-7.3) % Glucose 126 H (75-100) mg/dL Salicylates < 0.3 L (2.8-20.0) mg/dL Acetaminophen < 5.0 L (10.0-30.0) ug/mL 01/14/18 Range/Units 18:25 RBC 5.13 H (3.65-5.03) M/mm3 Hgb 15.8 H (11.8-15.2) gm/dl MCHC 36 H (32-34) % Lymph % (Auto) 38.1 H (13.4-35.0) % [place] % (Auto) 7.9 H (0.0-7.3) % Glucose (75-100) mg/dL Salicylates (2.8-20.0) mg/dL Acetaminophen (10.0-30.0) ug/mL All other labs normal. Assessment and Plan Assessment and plan: Impression: Today the patient refused to talk/cooperate during the assessment. The patient is positive for cocaine. Recommendation/Plan: Continue 1013 and attempt to reassess patient in 24 hours. Ongoing inpatient psy placement is still ongoing. The patient has PRN medications for acute agitation ordered.
--- NOTE | 2018-01-16 13:33 | Progress Note ---
Subjective - Reason for Consult Consult date: 01/16/18 Reason for consult: Psychiatry Follow-up - Chief Complaint Chief complaint: "They are following me" 32-year-old male presenting with a chief complaint suicidal ideation and hallucinations. Today the patient is calm, but tangent during the assessment. He is adamant that someone is after him and that he need to leave the [place] area. He stated hearing voices telling him to kill himself, something he has experienced in the past per the patient. He would not confirm or deny a suicide plan when asked. He stated not taken his medication (Seroquel) in weeks. He stated that he was recently inpatient at a mental health facility locally. He denies HI's and VH's. Mental Status Exam - Vital signs Last Vital Signs Temp 98.6 F 01/15/18 20:22 Pulse 75 01/15/18 20:22 Resp 18 01/15/18 20:22 BP 113/80 01/15/18 20:22 Pulse Ox 97 01/15/18 20:22 - Exam Narrative exam: MSE: Appearance: calm, cooperative Behavior: regular eye contact Speech: regular rate and tone Mood: dysphoric Affect: congruent to mood Thought Process: tangential Thought Content: denies HI's and VH's, paranoia Motor Activity: ambulatory Cognition: A/O x 3 Insight: poor Judgment: poor Assessment and Plan Impression: Unspecified Mood DO with psy features. Substance Use DO (cocaine). Today the patient is calm, but tangent during the assessment. DDx: Schizoaffective DO, R/O Bipolar, R/O Substance Induced Mood/Psychotic DO Recommendation/Plan: Continue 1013 with placement to inpatient psy services. Start Seroquel 200 mg PO for mood/psychosis. Discussed possible metabolic side effects of Seroquel with patient.
[2018-01-16 15:07] VITALS: BP 113/74
== END 2018-01-16 19:31 ==
LOC: EEVIPCON 17:15 → ED 17:15
DX: F20.0 Paranoid schizophrenia (principal); F17.200 Nicotine dependence, unspecified, uncomplicated
CPT/HCPCS: 36415; 80048; 80307; 81001; 85025; 96372; 99285; G0480; J1200; J1630; J2060; 80320

== ENCOUNTER 2019-03-13 01:52 | Emergency (ER) | payer MEDICAID ==
[2019-03-13 02:33] LABS: Basophils # (Auto) 0.1 K/mm3 (0.0-0.1); Basophils % (Auto) 1.2 % (0.0-1.8); Eosinophils # (Auto) 0.1 K/mm3 (0.0-0.4); Eosinophils % (Auto) 2.1 % (0.0-4.3); Hematocrit 47.7 % (35.5-45.6); Lymphocytes # (Auto) 2.1 K/mm3 (1.2-5.4); Lymphocytes % (Auto) 35.3 % (13.4-35.0); Mean Corpuscular HGB Conc 34 % (32-34); Mean Corpuscular Volume 88 fl (84-94); Monocytes # (Auto) 0.5 K/mm3 (0.0-0.8); Monocytes % (Auto) 8.1 % (0.0-7.3); Platelet Count 238 K/mm3 (140-440); Red Blood Count 5.45 M/mm3 (3.65-5.03); Red Cell Distribution Width 15.5 % (13.2-15.2)
[2019-03-13 03:06] LABS: BUN/Creatinine Ratio 10; Blood Urea Nitrogen 14 mg/dL (9-20); Calcium 8.9 mg/dL (8.4-10.2); Hemolysis Index 41
[2019-03-13 04:37] LABS: Bilirubin,Urine NEG (Negative); Blood,Urine NEG (Negative); Color,Urine Yellow (Yellow); Mucus,Urine FEW /HPF; Protein,Urine <15 mg/dL mg/dL (Negative); WBC,Urine < 1.0 /HPF (0.0-6.0)
[2019-03-13 04:55] LABS: Amphetamine Screen,Urine PRESUMPTIVE NEGATIVE; Benzodiazepines Screen,Urine PRESUMPTIVE NEGATIVE; Cannabinoid Screen,Urine PRESUMPTIVE NEGATIVE; Methadone Screen,Urine PRESUMPTIVE NEGATIVE; Opiate Screen,Urine PRESUMPTIVE NEGATIVE
[2019-03-13 05:15] LABS: Cocaine Screen,Urine PRESUMPTIVE POSITIVE
[2019-03-13] MEDS ORDERED: GEODON IM ONE (06:05)
--- NOTE | 2019-03-13 06:10 | Emergency Department Report ---
ED Psych HPI - General Chief Complaint: Psych Stated Complaint: MH EVALUATION Time Seen by Provider: 03/13/19 05:59 Source: patient Mode of arrival: Ambulatory - History of Present Illness Initial Comments: Patient is 33 years old male with history of schizophrenia. Patient walked into the ER stating that he is hearing voices asking him to kill himself. Patient also stated that he feels like people are after him and trying to kill him. The patient became very aggressive and treat at and start cursing triage nurse. Upon my assessment patient is paranoid and aggressive. Patient admitted suicidal ideation but does not want to talk about mechanism. Patient is with positive internal stimuli with obvious auditory and visual hallucination. Patient received Geodon 20 mg IM for chemical restraint. MD Complaint: suicidal ideation Associated Psychiatric Symptoms: depression, suicidal ideation, homicidal ideation, racing thoughts, auditory hallucinations, visual hallucinations History of same: Yes Quality: constant Context: recent drug abuse Associated Symptoms: denies other symptoms Treatments Prior to Arrival: none If Self Harm: admits thoughts of - Related Data Home Medications Medication Instructions Recorded Confirmed Last Taken No Known Home Medications [No 05/05/18 05/05/18 Unknown Reported Home Medications] Allergies Allergy/AdvReac Type Severity Reaction Status Date / Time turkey Allergy Unknown Verified 03/13/19 01:59 seafood AdvReac Vomiting Uncoded 01/14/18 17:20 ED Review of Systems ROS: Stated complaint: MH EVALUATION Other details as noted in HPI Comment: All other systems reviewed and negative Constitutional: denies: chills, fever Respiratory: denies: cough Gastrointestinal: denies: abdominal pain, nausea Musculoskeletal: denies: back pain Psychiatric: auditory hallucinations, visual hallucinations, suicidal thoughts ED Past Medical Hx - Past Medical History Previous Medical History?: Yes Hx Psychiatric Treatment: Yes (paranoid schiz) - Surgical History Past Surgical History?: Yes Additional Surgical History: arm , left thumb surgery. testicle removed - Social History Smoking Status: Never Smoker Substance Use Type: Alcohol, Cocaine - Medications Home Medications: Home Medications Medication Instructions Recorded Confirmed Last Taken Type No Known Home Medications [No 05/05/18 05/05/18 Unknown History Reported Home Medications] ED Physical Exam - General Limitations: No Limitations General appearance: alert, anxious, other (agitated) - Head Head exam: Present: atraumatic, normocephalic, normal inspection - Eye Eye exam: Present: normal appearance - ENT ENT exam: Present: normal exam, normal orophraynx, mucous membranes moist - Neck Neck exam: Present: normal inspection, full ROM. Absent: tenderness, meningismus, lymphadenopathy, thyromegaly - Respiratory Respiratory exam: Present: normal lung sounds bilaterally - Cardiovascular Cardiovascular Exam: Present: regular rate, normal rhythm, normal heart sounds - GI/Abdominal GI/Abdominal exam: Present: soft. Absent: distended, tenderness, guarding, rebound - Extremities Exam Extremities exam: Present: normal inspection, full ROM, normal capillary refill - Back Exam Back exam: Absent: CVA tenderness (R), CVA tenderness (L) - Neurological Exam Neurological exam: Present: alert, oriented X3, CN II-XII intact, normal gait, reflexes normal. Absent: motor sensory deficit - Psychiatric Psychiatric exam: Present: agitated, anxious, manic, suicidal ideation. Absent: homicidal ideation - Skin Skin exam: Present: warm, intact, normal color ED Course Vital Signs 03/13/19 01:59 Temperature 98.1 F Pulse Rate 58 L Respiratory 18 Rate Blood Pressure 123/61 [Right] O2 Sat by Pulse 99 Oximetry ED Medical Decision Making - Lab Data Result diagrams: 03/13/19 02:04 03/13/19 02:04 Critical care attestation.: If time is entered above; I have spent that time in minutes in the direct care of this critically ill patient, excluding procedure time. ED Disposition Clinical Impression: Acute psychosis, Cocaine abuse Condition: Stable
[2019-03-13 09:37] VITALS: BP 125/75
--- NOTE | 2019-03-13 12:10 | Consultation ---
History of Present Illness - Reason for Consult Consult date: 03/13/19 Reason for consult: Mental Health Evaluation Requesting physician: SHANTA VELIZ - Chief Complaint Chief complaint: "People are after me" - History of Present Psychiatric Illness 33 y.o. AA male who presented to the ER for AH's telling him to kill himself. This patient is known to me. He stated that he want out of the [place] area because "they" are holding him back from what he need to do. He was asked about who is "they," his answer was nonsensical. He is adamant that the voices he is hearing are not "good." The patient appeared irritable throughout the interview. He denies HI's and VH's. He would not confirm or deny SI's. He denies erratic sleep and a poor appetite. He denies alcohol consumption (etoh). Medications and Allergies Allergies Allergy/AdvReac Type Severity Reaction Status Date / Time turkey Allergy Unknown Verified 03/13/19 01:59 seafood AdvReac Vomiting Uncoded 01/14/18 17:20 Home Medications Medication Instructions Recorded Confirmed Last Taken Type No Known Home Medications [No 05/05/18 03/13/19 Unknown History Reported Home Medications] Past psychiatric history - Past Medical History Past Medical History: No medical history Past Surgical History: No surgical history - past Psychiatric treatment and history psychiatric treatment history: Several inpatient psy settings. Unable to obtain a [facility] psy hx. Mental Status Exam - Vital signs Last Vital Signs Temp 98.7 F 03/13/19 09:36 Pulse 85 03/13/19 09:36 Resp 18 03/13/19 01:59 BP 125/75 03/13/19 09:36 Pulse Ox 99 03/13/19 09:36 - Exam Narrative exam: MSE: Appearance: disheveled Behavior: poor eye contact Speech: regular rate and tone Mood: irritable, somewhat preoccupied Affect: congruent to mood Thought Process: tangential, disorganized Thought Content: denies SI/HI's and VH's, paranoia Motor Activity: ambulatory Cognition: A/O x 3 Insight: poor Judgment: poor Results Result Diagrams: 03/13/19 02:04 03/13/19 02:04 Abnormal lab results 03/13/19 03/13/19 03/13/19 Range/Units 02:04 02:04 02:04 RBC (3.65-5.03) M/mm3 Hgb (11.8-15.2) gm/dl Hct (35.5-45.6) % RDW (13.2-15.2) % Lymph % (Auto) (13.4-35.0) % [place] % (Auto) (0.0-7.3) % Chloride 108.4 H (98-107) mmol/L Glucose 101 H (75-100) mg/dL Salicylates < 0.3 L (2.8-20.0) mg/dL Acetaminophen < 5.0 L (10.0-30.0) ug/mL 03/13/19 Range/Units 02:04 RBC 5.45 H (3.65-5.03) M/mm3 Hgb 16.0 H (11.8-15.2) gm/dl Hct 47.7 H (35.5-45.6) % RDW 15.5 H (13.2-15.2) % Lymph % (Auto) 35.3 H (13.4-35.0) % [place] % (Auto) 8.1 H (0.0-7.3) % Chloride (98-107) mmol/L Glucose (75-100) mg/dL Salicylates (2.8-20.0) mg/dL Acetaminophen (10.0-30.0) ug/mL All other labs normal. Assessment and Plan Assessment and plan: Impression: Unspecified Mood DO with psy features. Substance Use DO (cocaine). Today the patient is calm, but disorganized during the assessment. DDx: Bipolar DO with psychosis, SCAD, Schizophrenia, Substance Induced Mood/ Psychotic DO Recommendation/Plan: Continue 1013 and start Seroquel 200 mg PO for psychosis. Attempted to discuss possible metabolic side effects of Seroquel with patient. Baseline A1c/Lipid Panel ordered in the AM. Will staff with Dr Ann Hayes.
== END 2019-03-13 19:06 ==
LOC: EEVIPCON 01:52 → ED 01:52
DX: F14.10 Cocaine abuse, uncomplicated (principal); F20.0 Paranoid schizophrenia; Z98.890 Other specified postprocedural states; Z88.8 Allergy status to other drugs, medicaments and biological substances; Z91.013 Allergy to seafood
CPT/HCPCS: 36415; 80048; 80307; 81001; 85025; 99285; J3486; 80320; G0480

== ENCOUNTER 2019-08-16 06:32 | Emergency (ER) | payer MEDICAID ==
[2019-08-16 07:36] LABS: Hematocrit 46.8 % (35.5-45.6); Hemoglobin 15.9 gm/dl (11.8-15.2); Mean Corpuscular HGB Conc 34 % (32-34); Mean Corpuscular Volume 85 fl (84-94); Platelet Count 277 K/mm3 (140-440); Red Blood Count 5.48 M/mm3 (3.65-5.03); Red Cell Distribution Width 14.9 % (13.2-15.2)
--- NOTE | 2019-08-16 07:45 | Emergency Department Report ---
ED Psych HPI - General Chief Complaint: Psych Stated Complaint: SUICIDAL/HEARING VOICES/MH EVAL Time Seen by Provider: 08/16/19 07:04 Source: patient Mode of arrival: Ambulatory - History of Present Illness Initial Comments: 34-year-old male with history of schizophrenia presents to ED for mental health evaluation. Patient reports auditory hallucinations telling him that he is worthless, making him paranoid, and telling him to hurt himself. Patient reports suicidal ideations, no plan. Patient states this is been ongoing for a couple of days. He reports cocaine use. States he has been off his psychiatric medications for 1 month. -: days(s) (2) Associated Psychiatric Symptoms: suicidal ideation, auditory hallucinations Quality: constant Improves With: medication Worsens With: drug use Context: recent drug abuse, not taking psychiatric Associated Symptoms: denies other symptoms Treatments Prior to Arrival: none If Self Harm: admits thoughts of - Related Data Previous Rx's Medication Instructions Recorded Last Taken Type Divalproex Dr [Depakote Dr] 500 mg PO BID #30 tablet 08/19/19 Unknown Rx risperiDONE [RisperDAL] 1 mg PO BID #30 tablet 08/19/19 Unknown Rx Allergies Allergy/AdvReac Type Severity Reaction Status Date / Time turkey Allergy Unknown Verified 03/13/19 01:59 seafood AdvReac Vomiting Uncoded 01/14/18 17:20 ED Review of Systems ROS: Stated complaint: SUICIDAL/HEARING VOICES/MH EVAL Other details as noted in HPI Comment: All other systems reviewed and negative Psychiatric: auditory hallucinations, suicidal thoughts. denies: visual mckenna lucinations, homicidal thoughts ED Past Medical Hx - Past Medical History Previous Medical History?: Yes Hx Psychiatric Treatment: Yes (paranoid schiz) - Surgical History Past Surgical History?: Yes Additional Surgical History: arm , left thumb surgery. testicle removed - Social History Smoking Status: Current Every Day Smoker Substance Use Type: Cocaine - Medications Home Medications: Home Medications Medication Instructions Recorded Confirmed Last Taken Type Divalproex Dr [Depakote Dr] 500 mg PO BID #30 tablet 08/19/19 Unknown Rx risperiDONE [RisperDAL] 1 mg PO BID #30 tablet 08/19/19 Unknown Rx ED Physical Exam - General Limitations: No Limitations General appearance: alert, in no apparent distress - Head Head exam: Present: atraumatic, normocephalic - Eye Eye exam: Present: normal appearance, EOMI - ENT ENT exam: Present: mucous membranes moist - Neck Neck exam: Present: normal inspection - Respiratory Respiratory exam: Present: normal lung sounds bilaterally. Absent: respiratory distress - Cardiovascular Cardiovascular Exam: Present: regular rate, normal rhythm - GI/Abdominal GI/Abdominal exam: Absent: distended - Extremities Exam Extremities exam: Present: normal inspection - Neurological Exam Neurological exam: Present: alert, oriented X3 - Psychiatric Psychiatric exam: Present: normal affect, normal mood - Skin Skin exam: Present: warm, dry, intact, normal color ED Course Vital Signs 08/16/19 08/16/19 08/16/19 06:37 07:00 13:00 Temperature 98.7 F 97.9 F 97.4 F L Pulse Rate 93 H 67 89 Respiratory 18 18 18 Rate Blood Pressure 113/81 Blood Pressure 131/77 101/70 [Left] O2 Sat by Pulse 99 100 96 Oximetry 08/16/19 08/16/19 08/17/19 19:37 20:00 01:29 Temperature 98.6 F 98.2 F Pulse Rate 82 61 Respiratory 16 18 18 Rate Blood Pressure Blood Pressure 125/80 92/59 [Left] O2 Sat by Pulse 100 100 97 Oximetry 08/17/19 08/17/19 08/17/19 08:31 14:40 20:00 Temperature 98.6 F 97.9 F Pulse Rate 77 70 Respiratory 17 17 18 Rate Blood Pressure Blood Pressure 117/73 112/68 [Left] O2 Sat by Pulse 98 98 99 Oximetry 08/17/19 08/18/19 08/18/19 20:36 02:07 08:16 Temperature 97.9 F 98.0 F 98.5 F Pulse Rate 77 99 H 67 Respiratory 18 17 17 Rate Blood Pressure Blood Pressure 110/66 110/82 111/80 [Left] O2 Sat by Pulse 100 98 100 Oximetry 08/18/19 08/18/19 08/18/19 15:20 19:57 20:36 Temperature 97.8 F 98.1 F Pulse Rate 73 72 Respiratory 17 16 16 Rate Blood Pressure Blood Pressure 111/68 93/49 [Left] O2 Sat by Pulse 97 100 100 Oximetry 08/19/19 08/19/19 08/19/19 02:16 07:52 10:29 Temperature 98.8 F 97.6 F Pulse Rate 79 60 Respiratory 16 20 20 Rate Blood Pressure Blood Pressure 129/78 111/54 [Left] O2 Sat by Pulse 100 98 98 Oximetry ED Medical Decision Making - Lab Data Result diagrams: 08/16/19 07:26 08/16/19 07:26 - Medical Decision Making Patient is medically clear for mental health evaluation. Critical care attestation.: If time is entered above; I have spent that time in minutes in the direct care of this critically ill patient, excluding procedure time. ED Disposition Clinical Impression: Drug-induced mood disorder Disposition: DC-01 TO HOME OR SELFCARE Is pt being admited?: No Condition: Stable Instructions: Mood Disorders (ED), Polysubstance Abuse (ED) Prescriptions: Divalproex Dr [Angelica Trivedi] 500 mg PO BID #30 tablet risperiDONE [RisperDAL] 1 mg PO BID #30 tablet Referrals: PRIMARY CARE, [Primary Care Provider] - 3-5 Days [facility] [Outside] - 3-5 Days Time of Disposition: 12:50
[2019-08-16 07:56] LABS: Bacteria,Urine 1+ /HPF (Negative); Bilirubin,Urine NEG (Negative); Blood,Urine NEG (Negative); Color,Urine Yellow (Yellow); Mucus,Urine 1+ /HPF; Protein,Urine <15 mg/dL mg/dL (Negative)
[2019-08-16 07:57] LABS: BUN/Creatinine Ratio 6; Blood Urea Nitrogen 8 mg/dL (9-20); Calcium 9.1 mg/dL (8.4-10.2); Hemolysis Index 12
[2019-08-16 09:17] LABS: Band Neutrophils # (Manual) 0.1 K/mm3; Basophils % (Manual) 0 % (0.0-1.8); Total Cells Counted 100
[2019-08-16 09:18] LABS: Platelet Estimate Consistent w Auto; RBC Morphology Normal
--- NOTE | 2019-08-16 14:58 | Event Note ---
Patient was seen by our mental health staff and it was determined that the patient did meet criteria for 1013. 1013 has been filled out by me at this time.
[2019-08-16 15:13] LABS: Benzodiazepines Screen,Urine PRESUMPTIVE NEGATIVE; Cannabinoid Screen,Urine PRESUMPTIVE NEGATIVE; Methadone Screen,Urine PRESUMPTIVE NEGATIVE; Opiate Screen,Urine PRESUMPTIVE NEGATIVE
[2019-08-16 15:24] LABS: Amphetamine Screen,Urine PRESUMPTIVE POSITIVE; Cocaine Screen,Urine PRESUMPTIVE POSITIVE
--- NOTE | 2019-08-17 13:12 | Consultation ---
History of Present Illness - Reason for Consult Consult date: 08/17/19 Reason for consult: SI with plan - Chief Complaint Chief complaint: Suicidal thoughts with plan, hallucinations, depressed - History of Present Psychiatric Illness Jl Luna is a 34y/o male patient who verbalizes having suicidal thoughts with a plan to walk into traffic, and auditory hallucinations. He is a/o x 3. He makes poor eye contact. He's easily agitated. He says he's been feeling this was for about "three days." The patient states he "hears voices telling me to kill myself, cause don't nobody want me around." He says "things just aint right." He says he has had "two other suicide attempts by walking into traffic." When asking about any illicit drug use, the patient snaps, "yea cocaine. Why yall think everything is about drugs." When explaining to the patient this allows me to formulate the best treatment for him he replied, "well some things don't matter. All yall think about are drugs." He denies any other illicit drug use, although he was also positive for methamphetamines. He denies any alcohol use. The patient admits to using "nicotine daily, singles." He says he has a history of "paranoid schizophrenia" and been off his meds for a "month." He says "I don't remember" when asked what his medications were. The patient replied, "I'm not counting how many times I've been admitted" when asked was admitted in the past for psychiatric problems. PAST PSYCHIATRIC HISTORY: Diagnoses: Paranoid schizophrenia Suicide attempts or Self-harm behavior: twice Prior psychiatric hospitalizations: yes Substance Abuse history: Cocaine Previous psychiatric medications tried: "I don't remember" Outpatient treatment: Denies PAST MEDICAL HISTORY: None reported Family Psychiatric History: None reported SOCIAL HISTORY Marital Status: Single Living Arrangements: Friend Employment Status: Unemployed Access to guns/weapons: Denies Education: 9th grade History of Abuse: Denies Legal History: Yes ROS: Constitutional: Negative for weight loss ENT: Negative for stridor Respiratory: Negative for cough or hemoptysis All other systems reviewed and are negative MENTAL STATUS General Appearance: Dressed appropriately. Poor eye contact Behavior: Evasive. Poor eye contact. Affect: Restricted Mood: down Speech: Normal tone and pace Thought Process: goal directed Thought Content Suicidal Ideation: Yes Homicidal Ideation: Denies Hallucinations: Yes, auditory Delusions: None elicited Insight/Judgement: Limited Memory/Cognition: Limited ASSESSMENT: Drug Induced Mood Disorder RECOMMENDATIONS Risperidone 1mg po BID Depakote DR 125mg po BID Trazodone 50mg po qhs Melatonin 5mg po qhs Geodon 10mg IM q 4 hours prn agitation Risks, benefits and alternatives of medications discussed with the patient, questions answered and consent obtained from patient. PSYCHOTHERAPY: Supportive psychotherapy provided MEDICAL: Per primary team DELIRIUM PRECAUTIONS: Please re-orient patient frequently, keep lights on during the day, and minimize benzodiazepines and opiates as these medications could worsen patient's confusion. SOCIALLY RESPONSIBLE INVESTMENT ADVISER: Defer to primary DISPOSITION: The patient meets the requirement for acute inpatient psychiatric treatment. He may transfer to an acute inpatient facility once medically cleared. The treatment plan, including benefits, and side effects of medication was discussed with the patient. He verbalized understanding and agreement of plan. Will continue to follow until the patient until he is transferred or his condition improves. Please call with any questions or concerns. Thank you for this consult. Medications and Allergies Allergies Allergy/AdvReac Type Severity Reaction Status Date / Time turkey Allergy Unknown Verified 03/13/19 01:59 seafood AdvReac Vomiting Uncoded 01/14/18 17:20 Home Medications Medication Instructions Recorded Confirmed Last Taken Type No Known Home Medications [No 05/05/18 03/13/19 Unknown History Reported Home Medications] Mental Status Exam - Vital signs Last Vital Signs Temp 98.6 F 08/17/19 08:31 Pulse 77 08/17/19 08:31 Resp 17 08/17/19 08:31 BP 117/73 08/17/19 08:31 Pulse Ox 98 08/17/19 08:31 Results Result Diagrams: 08/16/19 07:26 08/16/19 07:26 All other labs normal.
[2019-08-17] MEDS ORDERED: MELATONIN 5 MG TAB PO PRN (13:15)
[2019-08-17] MEDS ORDERED: ZIPRASIDONE MESYLATE 20 MG VIAL IM PRN (13:15)
[2019-08-17] MEDS: risperiDONE 1 MG TAB PO SCH ×2 (15:00→22:13)
[2019-08-17] MEDS: NICOTINE 21 MG/24 HR PATCH TD SCH (15:00)
[2019-08-17] MEDS: DIVALPROEX DR 125 MG TAB PO SCH ×2 (15:00→22:13)
[2019-08-17] MEDS: traZODone 50 MG TAB PO SCH (22:13)
[2019-08-18] MEDS: risperiDONE 1 MG TAB PO SCH ×2 (11:37→21:57)
[2019-08-18] MEDS: DIVALPROEX DR 125 MG TAB PO SCH (11:37)
[2019-08-18] MEDS: NICOTINE 21 MG/24 HR PATCH TD SCH (11:40)
[2019-08-18] MEDS ORDERED: DIVALPROEX DR 125 MG TAB PO SCH (13:19)
--- NOTE | 2019-08-18 13:19 | Progress Note ---
Subjective - Reason for Consult Consult date: 08/18/19 Reason for consult: Psych follow up - Chief Complaint Chief complaint: Patient seen by me this morning. He reports feeling better but still feels suicidal and still hearing voices but indicates that they are decreased. He reports that his medications are beneficial and he denies side effect. MENTAL STATUS General Appearance: Dressed appropriately. Poor eye contact Behavior: . Poor eye contact. Affect: Restricted Mood: down Speech: Normal tone and pace Thought Process: goal directed Thought Content Suicidal Ideation: Yes Homicidal Ideation: Denies Hallucinations: Yes, auditory Delusions: None elicited Insight/Judgement: Limited Memory/Cognition: Limited ASSESSMENT: Drug Induced Mood Disorder RECOMMENDATIONS Risperidone 1mg po BID Increase Depakote DR to 500mg po BID Trazodone 50mg po qhs Melatonin 5mg po qhs Geodon 10mg IM q 4 hours prn agitation Risks, benefits and alternatives of medications discussed with the patient, questions answered and consent obtained from patient. PSYCHOTHERAPY: Supportive psychotherapy provided MEDICAL: Per primary team DELIRIUM PRECAUTIONS: n/a ACID EXTRACTOR: Defer to primary DISPOSITION: The patient meets the requirement for acute inpatient psychiatric treatment. He may transfer to an acute inpatient facility once medically cleared. The treatment plan, including benefits, and side effects of medication was discussed with the patient. He verbalized understanding and agreement of plan. Will continue to follow until the patient until he is transferred or his condition improves. Please call with any questions or concerns. Thank you for this consult. Mental Status Exam - Vital signs Last Vital Signs Temp 98.5 F 08/18/19 08:16 Pulse 67 08/18/19 08:16 Resp 17 08/18/19 08:16 BP 111/80 08/18/19 08:16 Pulse Ox 100 08/18/19 08:16
[2019-08-18] MEDS: DIVALPROEX DR 500 MG TAB PO SCH ×2 (17:13→21:57)
[2019-08-18] MEDS: traZODone 50 MG TAB PO SCH (21:59)
[2019-08-19] MEDS: risperiDONE 1 MG TAB PO SCH (10:26)
[2019-08-19] MEDS: DIVALPROEX DR 500 MG TAB PO SCH (10:26)
[2019-08-19] MEDS: NICOTINE 21 MG/24 HR PATCH TD SCH (10:27)
--- NOTE | 2019-08-19 12:19 | Progress Note ---
Subjective - Reason for Consult Consult date: 08/19/19 Reason for consult: Psych follow up. - Chief Complaint Chief complaint: Patient seen by me this morning. He evasive and uncooperative with interview. Wants to be left alone. He denies SI/HI/AVH and no medication side effect reported MENTAL STATUS General Appearance: Dressed appropriately. Behavior: . Poor eye contact. Affect: Normal Mood: OK Speech: Normal tone and pace Thought Process: goal directed Thought Content Suicidal Ideation: Denies Homicidal Ideation: Denies Hallucinations: Denies Delusions: None elicited Insight/Judgment: Normal Memory/Cognition: Normal ASSESSMENT: Drug Induced Mood Disorder RECOMMENDATIONS Discharge home on Risperidone 1mg po BID and Depakote DR to 500mg po BID Risks, benefits and alternatives of medications discussed with the patient, questions answered and consent obtained from patient. PSYCHOTHERAPY: Supportive psychotherapy provided MEDICAL: Per primary team DIRECTOR PHARMACY SERVICES: May discontinue DISPOSITION: Per primary team. No indication for acute inpatient psychiatric hospitalization. LEGAL STATUS: 1013 rescinded FOLLOW-UP: Will sign off The patient agreed on the treatment plan, understood the risk, benefit, alternative treatment, potential consequence of no treatment, and gave informed consent. Mental Status Exam - Vital signs Last Vital Signs Temp 97.6 F 08/19/19 07:52 Pulse 60 08/19/19 07:52 Resp 20 08/19/19 10:29 BP 111/54 08/19/19 07:52 Pulse Ox 98 08/19/19 10:29
[2019-08-19 13:40] VITALS: BP 108/61
== END 2019-08-19 13:36 | disposition home or self-care (01) ==
LOC: ED 06:32
DX: F19.94 Other psychoactive substance use, unspecified with psychoactive substance-induced mood disorder (principal); F20.9 Schizophrenia, unspecified; F17.200 Nicotine dependence, unspecified, uncomplicated; Z79.899 Other long term (current) drug therapy; Z98.890 Other specified postprocedural states; Z91.013 Allergy to seafood; Z88.8 Allergy status to other drugs, medicaments and biological substances
CPT/HCPCS: 36415; 80048; 80307; 80320; 81001; 85007; 85025; G0480

== ENCOUNTER 2019-11-11 10:34 | Emergency (ER) | payer MEDICAID ==
[2019-11-11 11:24] LABS: Bilirubin,Urine NEG (Negative); Blood,Urine NEG (Negative); Color,Urine Yellow (Yellow); Mucus,Urine 3+ /HPF; Protein,Urine <15 mg/dL mg/dL (Negative)
[2019-11-11 11:31] LABS: Amphetamine Screen,Urine PRESUMPTIVE NEGATIVE; Benzodiazepines Screen,Urine PRESUMPTIVE NEGATIVE; Cannabinoid Screen,Urine PRESUMPTIVE NEGATIVE; Methadone Screen,Urine PRESUMPTIVE NEGATIVE; Opiate Screen,Urine PRESUMPTIVE NEGATIVE
[2019-11-11 11:37] LABS: Basophils # (Auto) 0.1 K/mm3 (0.0-0.1); Basophils % (Auto) 1.2 % (0.0-1.8); Eosinophils # (Auto) 0.1 K/mm3 (0.0-0.4); Hematocrit 46.5 % (35.5-45.6); Hemoglobin 16.2 gm/dl (11.8-15.2); Lymphocytes # (Auto) 1.8 K/mm3 (1.2-5.4); Lymphocytes % (Auto) 26.7 % (13.4-35.0); Mean Corpuscular HGB Conc 35 % (32-34); Mean Corpuscular Volume 87 fl (84-94); Monocytes # (Auto) 0.4 K/mm3 (0.0-0.8); Monocytes % (Auto) 6.6 % (0.0-7.3); Platelet Count 287 K/mm3 (140-440); Red Blood Count 5.35 M/mm3 (3.65-5.03); Red Cell Distribution Width 14.2 % (13.2-15.2)
[2019-11-11 11:59] LABS: BUN/Creatinine Ratio 11; Blood Urea Nitrogen 12 mg/dL (9-20); Calcium 9.7 mg/dL (8.4-10.2); Hemolysis Index 6
[2019-11-11 12:12] LABS: Cocaine Screen,Urine PRESUMPTIVE POSITIVE
--- NOTE | 2019-11-11 13:47 | Emergency Department Report ---
HPI - General Chief Complaint: Psych Time Seen by Provider: 11/11/19 13:43 - HPI HPI: 34-year-old male presents to the emergency department with complaint of auditory and visual hallucinations and suicidal ideations. The patient says he has been having hallucinations for the past few weeks and the suicidal ideations for the past 2 days. Patient says he is depressed and feeling suicidal because of the hallucinations, and says "everybody has been taking things out on me." Patient is currently living "with a friend" and denies having any current appointment. He does have a diagnosed history of schizophrenia. He has not taken his medications for the past few weeks as he ran out and "I do not have a psychiatrist." He denies any homicidal ideations. ED Past Medical Hx - Past Medical History Hx Psychiatric Treatment: Yes (paranoid schiz) - Surgical History Past Surgical History?: Yes Additional Surgical History: arm , left thumb surgery. testicle removed - Social History Smoking Status: Never Smoker Substance Use Type: Cocaine - Medications Home Medications: Home Medications Medication Instructions Recorded Confirmed Last Taken Type Divalproex Dr [Depakote ] 500 mg PO BID #30 tablet 08/19/19 Unknown Rx risperiDONE [RisperDAL] 1 mg PO BID #30 tablet 08/19/19 Unknown Rx ED Review of Systems ROS: Stated complaint: MH Other details as noted in HPI Comment: All other systems reviewed and negative Constitutional: denies: chills, fever Respiratory: denies: cough, shortness of breath Cardiovascular: denies: chest pain, palpitations Gastrointestinal: denies: abdominal pain, vomiting Musculoskeletal: denies: back pain, arthralgia Neurological: denies: headache, weakness Psychiatric: auditory hallucinations, visual hallucinations, suicidal thoughts. denies: homicidal thoughts Physical Exam - Physical Exam Vital Signs: Vital Signs 11/11/19 10:39 Temperature 97.5 F L Pulse Rate 66 Respiratory 20 Rate Blood Pressure 109/72 O2 Sat by Pulse 98 Oximetry Physical Exam: GENERAL: The patient is well-developed well-nourished. HENT: Normocephalic. Atraumatic. Patient has moist mucous membranes. EYES: Extraocular motions are intact. NECK: Supple. Trachea is midline. CHEST/LUNGS: Clear to auscultation. There is no respiratory distress noted. HEART/CARDIOVASCULAR: Regular. There is no tachycardia. ABDOMEN: Abdomen is soft, nontender. Patient has normal bowel sounds. SKIN: Skin is warm and dry. NEURO: The patient is awake, alert, and oriented. The patient is cooperative. The patient has no focal neurologic deficits. Normal speech. MUSCULOSKELETAL: There is no tenderness or deformity. There is no evidence of acute injury. ED Course Vital Signs 11/11/19 10:39 Temperature 97.5 F L Pulse Rate 66 Respiratory 20 Rate Blood Pressure 109/72 O2 Sat by Pulse 98 Oximetry ED Medical Decision Making - Lab Data Result diagrams: 11/11/19 Unknown 11/11/19 Unknown - Medical Decision Making This patient presents to the emergency department with the complaint of command hallucinations and suicidal ideations. For this reason the patient has been ma de a 1013. His labs are unremarkable except for cocaine being positive on UDS but the patient does not appear acutely intoxicated. His vital signs been stable throughout his ED course. He was seen by the psychiatric team that agrees that the patient requires inpatient stabilization. He is medically cleared for psychiatric placement. Critical Care Time: No Critical care attestation.: If time is entered above; I have spent that time in minutes in the direct care of this critically ill patient, excluding procedure time. ED Disposition Clinical Impression: Suicidal ideations, History of command hallucinations Schizophrenia Qualifiers: Schizophrenia type: unspecified Qualified Code(s): F20.9 - Schizophrenia, unspecified Disposition: OP ADMIT IP TO THIS HOSP Is pt being admited?: No Condition: Stable Time of Disposition: 18:52
--- NOTE | 2019-11-12 13:41 | Consultation ---
History of Present Illness - Reason for Consult Consult date: 11/12/19 Reason for consult: MHE Requesting physician: ISELA WOODALL - Chief Complaint Chief complaint: Hallucination - History of Present Psychiatric Illness Per ED Provider: 34-year-old male presents to the emergency department with complaint of auditory and visual hallucinations and suicidal ideations. The patient says he has been having hallucinations for the past few weeks and the suicidal ideations for the past 2 days. Patient says he is depressed and feeling suicidal because of the hallucinations, and says "everybody has been taking things out on me." Patient is currently living "with a friend" and denies having any current appointment. He does have a diagnosed history of schizophrenia. He has not taken his medications for the past few weeks as he ran out and "I do not have a psychiatrist." He denies any homicidal ideations. Per MHA: Pt is a 34 yo AA male presenting to ED for MHE, as pt reported Si/HI with plan, command hallucinations. During ax, pt presented with cooperative behaviors, anxious mood and incongruent affect. Pt appeared agiitated during ax, requiring some prompting to engage. Pt reports onset of SI/HI with plan, command hallucinations 11/09/19. Pt identified trigger of lack of social and family supports. Pt reports SI/HI with plan, command hallucinations and stated, These voices are telling me to kill myself and random people, I was g onna buy a gun". Pt denies hx of attempts. Pt denies HI. Pt denies Visual Hallucinations. Pt reports hx of Paranoid Schizophrenia. Pt reports cocaine abuse. Pt reports using $60 weekly. Pt reports onset age 28. Pt reports occasional alcohol use. Pt reports drinking a beer daily a couple times per week. Pt reports residing with a friend. Pt reports release from nursing home in May 2019. Pt is not on probation or parole. Pt reports decline in sleep/appetite, informing skull chopper that he has not been getting enough. PSYCH HPI Patient is a 34 year old, unemployed single Male who currently reside with a friend with Past Psychiatric History of Depression, Bipolar, Schizophrenia and no known medical problems who presents today with chief c omplaints of Hallucination accompanied with Suicidal Hallucination. patient reports he has been having lot of life issues, both financially, socially and also mentally. Says he has had no family support, not taking medications because he currently does not have them and cant seem to figure his own life out. He reports hearing command voices telling him to kill himself. Patient also endorses illicit drug use, reports using cocaine just a few days ago. PAST PSYCHIATRIC HISTORY Diagnoses: Paranoid Schizophrenia Suicide attempts or Self-harm behavior: n/a Prior psychiatric hospitalizations: Yes Substance Abuse history: Alcohol and cocaine Previous psychiatric medications tried: unknown Outpatient treatment: Yes PAST MEDICAL HISTORY: none reported Family Psychiatric History: None reported or documented SOCIAL HISTORY Marital Status: Single Living Arrangements: with a friend Employment Status: on disability Access to guns/weapons: none reported Education: 9th grade History of Abuse: none reported Legal History: Yes REVIEW OF SYSTEMS Constitutional: Negative for weight loss ENT: Negative for stridor Respiratory: Negative for cough or hemoptysis All other systems reviewed and are negative MENTAL STATUS EXAMINATION General Appearance and Behavior: Age appropriate, fair hygiene, wearing appropriate clothes, good eye contact, cooperative with questioning and irritable Cooperation: Participating but slightly Withdrawn Psychomotor Behavior: Psychomotor agitation Mood: " sand and depressed" Affect and affective range: dysthymic Thought Process: Logical Thought Content: Within reality Speech: pressured, loud volume, soft volume Suicidal Ideation: Endorses SI Homicidal Ideation: Denies HI Impulse Control: Unimpaired Insight and Judgment: Normal insight and judgment, Impaired Memory: Intact Attention: normal Orientation: Alert, oriented, anxious, and disorganized. RECOMMENDATIONS MEDICATIONS: Restart previous meds Risks, benefits and alternatives of medications discussed with the patient, questions answered and consent obtained from patient. PSYCHOTHERAPY: Supportive psychotherapy provided MEDICAL: Per primary team DELIRIUM PRECAUTIONS: Please re-orient patient frequently, keep lights on during the day, and minimize benzodiazepines and opiates as these medications could worsen patient's confusion. GARMENT LINER: Per Medical Team DISPOSITION: Recommends for acute inpatient psychiatric hospitalization at this time LEGAL STATUS: 1013 FOLLOW-UP: Will follow Thank you for the consult. Please contact with any questions and/or concerns. Medications and Allergies Allergies Allergy/AdvReac Type Severity Reaction Status Date / Time turkey Allergy Unknown Verified 11/11/19 10:36 seafood AdvReac Vomiting Uncoded 01/14/18 17:20 Home Medications Medication Instructions Recorded Confirmed Last Taken Type Divalproex [Angelica Trivedi] 500 mg PO BID #30 tablet 08/19/19 Unknown Rx risperiDONE [RisperDAL] 1 mg PO BID #30 tablet 08/19/19 Unknown Rx Mental Status Exam - Vital signs Last Vital Signs Temp 98.8 F 11/12/19 02:00 Pulse 57 L 11/12/19 09:21 Resp 18 11/12/19 09:21 BP 112/78 11/12/19 02:00 Pulse Ox 100 11/12/19 02:00 Results Result Diagrams: 11/11/19 Unknown 11/11/19 Unknown All other labs normal.
[2019-11-12] MEDS ORDERED: risperiDONE 0.25 MG TAB PO SCH (14:00)
[2019-11-12] MEDS: risperiDONE 1 MG TAB PO SCH ×2 (14:10→22:28)
[2019-11-12] MEDS: VALPROIC ACID 250 MG CAP PO SCH ×2 (14:16→22:28)
[2019-11-12] MEDS ORDERED: ALPRAZolam 0.5 MG TAB PO ONE (19:36)
[2019-11-13] MEDS ORDERED: SODIUM CHLORIDE 0.9% 1000 ML 1,000 ML IV ONE (01:57)
[2019-11-13 02:25] LABS: Basophils % (Auto) 0.1 % (0.0-1.8); Eosinophils # (Auto) 0.1 K/mm3 (0.0-0.4); Eosinophils % (Auto) 2.1 % (0.0-4.3); Hematocrit 42.3 % (35.5-45.6); Hemoglobin 14.6 gm/dl (11.8-15.2); Lymphocytes # (Auto) 1.8 K/mm3 (1.2-5.4); Mean Corpuscular HGB Conc 35 % (32-34); Mean Corpuscular Volume 87 fl (84-94); Monocytes # (Auto) 0.4 K/mm3 (0.0-0.8); Monocytes % (Auto) 8.5 % (0.0-7.3); Platelet Count 233 K/mm3 (140-440); Red Blood Count 4.88 M/mm3 (3.65-5.03); Red Cell Distribution Width 13.9 % (13.2-15.2)
[2019-11-13 02:45] LABS: BUN/Creatinine Ratio 14; Blood Urea Nitrogen 15 mg/dL (9-20); Calcium 8.8 mg/dL (8.4-10.2); Hemolysis Index 42
[2019-11-13] MEDS: VALPROIC ACID 250 MG CAP PO SCH ×3 (12:15→22:16)
[2019-11-13] MEDS: risperiDONE 1 MG TAB PO SCH ×3 (12:15→22:16)
--- NOTE | 2019-11-13 14:16 | Progress Note ---
Subjective - Reason for Consult Consult date: 11/13/19 Reason for consult: MHE Requesting physician: ISELA WOODALL - Chief Complaint Chief complaint: PSYCH PROGRESS HPI Patient seen in ER today, transferred to medical bed for bradycardia. Patient reports persistent hopelessness, depressed mood. Suicidal and Homicidal thoughts but not towards any specific person and Hallucinations. REVIEW OF SYSTEMS Constitutional: Negative for weight loss ENT: Negative for stridor Respiratory: Negative for cough or hemoptysis All other systems reviewed and are negative MENTAL STATUS EXAMINATION General Appearance and Behavior: Age appropriate, fair hygiene, wearing appropriate clothes, good eye contact, cooperative with questioning and irritable Cooperation: Participating but slightly Withdrawn Psychomotor Behavior: Psychomotor agitation Mood: " sad and depressed" Affect and affective range: dysthymic Thought Process: Logical Thought Content: Within reality Speech: pressured, loud volume, soft volume Suicidal Ideation: Endorses SI Homicidal Ideation: Denies HI Impulse Control: Unimpaired Insight and Judgment: Normal insight and judgment, Impaired Memory: Intact Attention: normal Orientation: Alert, oriented, anxious, and disorganized. RECOMMENDATIONS MEDICATIONS: Restart previous meds Risks, benefits and alternatives of medications discussed with the patient, questions answered and consent obtained from patient. PSYCHOTHERAPY: Supportive psychotherapy provided MEDICAL: Per primary team DELIRIUM PRECAUTIONS: Please re-orient patient frequently, keep lights on during the day, and minimize benzodiazepines and opiates as these medications could worsen patient's confusion. LADLE REPAIRMAN: Per Medical Team DISPOSITION: Recommends for acute inpatient psychiatric hospitalization at this time LEGAL STATUS: 1013 FOLLOW-UP: Will follow Thank you for the consult. Please contact with any questions and/or concerns. Mental Status Exam - Vital signs Last Vital Signs Temp 97.8 F 11/13/19 01:54 Pulse 52 L 11/13/19 11:00 Resp 15 11/13/19 11:00 BP 92/54 11/13/19 11:00 Pulse Ox 97 11/13/19 11:00
[2019-11-13] MEDS ORDERED: ZIPRASIDONE MESYLATE 20 MG VIAL IM ONE ×2 (18:40→18:41)
[2019-11-13] MEDS ORDERED: LORazepam 2 MG/ML VIAL ONE (18:40)
[2019-11-13] MEDS ORDERED: LORazepam 2 MG/ML VIAL IM ONE (18:40)
[2019-11-14] MEDS: risperiDONE 1 MG TAB PO SCH (09:44)
[2019-11-14] MEDS: VALPROIC ACID 250 MG CAP PO SCH ×2 (09:45→22:19)
[2019-11-14] MEDS ORDERED: ZIPRASIDONE MESYLATE 20 MG VIAL IM PRN (14:00)
[2019-11-14] MEDS ORDERED: diphenhydrAMINE 50 MG/ML VIAL IM PRN (14:01)
--- NOTE | 2019-11-14 15:49 | Progress Note ---
Subjective - Reason for Consult Consult date: 11/14/19 Reason for consult: MHE Requesting physician: ISELA WOODALL - Chief Complaint Chief complaint: PSYCH PROGRESS HPI Patient seen in ER today, says he does not like the risperidone side effect, says he would like to be taking somewhere. Patient reports perisstent depressed mood, SI, HI. Patient is also requesting for ativan to be given to him, so that he can calm down. REVIEW OF SYSTEMS Constitutional: Negative for weight loss ENT: Negative for stridor Respiratory: Negative for cough or hemoptysis All other systems reviewed and are negative MENTAL STATUS EXAMINATION General Appearance and Behavior: Age appropriate, fair hygiene, wearing appropriate clothes, good eye contact, cooperative with questioning and irritable Cooperation: Participating but slightly Withdrawn Psychomotor Behavior: Psychomotor agitation Mood: " sad and depressed" Affect and affective range: dysthymic Thought Process: Logical Thought Content: Within reality Speech: pressured, loud volume, soft volume Suicidal Ideation: Endorses SI Homicidal Ideation: Denies HI Impulse Control: Unimpaired Insight and Judgment: Normal insight and judgment, Impaired Memory: Intact Attention: normal Orientation: Alert, oriented, anxious, and disorganized. RECOMMENDATIONS Patient positive for cocaine. This patient has been to multiple facility before, due to his constant aggression to staff, and non compliance with medication, facilities are not currently accepting. Will discontinue risperidone and switch to olazapine, with plan to safely discharge to [facility] with his medications tomorrow as new meds started tonight to ensure to side effects and tolerance. MEDICATIONS: Restart previous meds Risks, benefits and alternatives of medications discussed with the patient, questions answered and consent obtained from patient. PSYCHOTHERAPY: Supportive psychotherapy provided MEDICAL: Per primary team DELIRIUM PRECAUTIONS: Please re-orient patient frequently, keep lights on during the day, and minimize benzodiazepines and opiates as these medications could worsen patient's confusion. ANIMAL WARDEN: Per Medical Team DISPOSITION: Recommends for acute inpatient psychiatric hospitalization at this time LEGAL STATUS: 1013 FOLLOW-UP: Will follow Thank you for the consult. Please contact with any questions and/or concerns. Mental Status Exam - Vital signs Last Vital Signs Temp 98.1 F 11/14/19 14:31 Pulse 78 11/14/19 14:31 Resp 20 11/14/19 14:31 BP 109/77 11/14/19 14:31 Pulse Ox 99 11/14/19 14:31 Assessment and Plan - Patient Problems (1) Schizoaffective disorder, bipolar type Status: Acute (2) MDD (major depressive disorder), recurrent episode Status: Acute (3) Cocaine use disorder Status: Acute (4) Substance induced mood disorder Status: Acute
[2019-11-14] MEDS ORDERED: VALPROIC ACID 250 MG/5 ML ORAL LIQD FEEDTUBE SCH (23:00)
[2019-11-15 01:59] VITALS: BP 109/68
--- NOTE | 2019-11-15 13:18 | Progress Note ---
Subjective - Reason for Consult Consult date: 11/15/19 Reason for consult: MHE Requesting physician: ISELA WOODALL - Chief Complaint Chief complaint: PSYCH PROGRESS HPI Patient seen in ER today, sleeping and resting comfortably in room, no distress noted. Patient states his glad his mediations was started yesterday but still wants to be here till it kicks in, patient endorsess SI, HI and AVH. Informed patient I will be discharging him to senior care with his current meds, that cocaine is complicating his treatment and encouraged to stop illicit drug use. REVIEW OF SYSTEMS Constitutional: Negative for weight loss ENT: Negative for stridor Respiratory: Negative for cough or hemoptysis All other systems reviewed and are negative MENTAL STATUS EXAMINATION General Appearance and Behavior: Age appropriate, fair hygiene, wearing appropriate clothes, good eye contact, cooperative with questioning and irritable Cooperation: Participating but slightly Withdrawn Psychomotor Behavior: Psychomotor agitation Mood: " sad and depressed" Affect and affective range: dysthymic Thought Process: Logical Thought Content: Within reality Speech: pressured, loud volume, soft volume Suicidal Ideation: Endorses SI Homicidal Ideation: Denies HI Impulse Control: Unimpaired Insight and Judgment: Normal insight and judgment, Impaired Memory: Intact Attention: normal Orientation: Alert, oriented, anxious, and disorganized. RECOMMENDATIONS Patient positive for cocaine. This patient has been to multiple facility before, due to his constant aggression to staff, and non compliance with medication. In my professional opinion, patient has achieved the maximum benefits of inpatient treatment at this time. Continuing inpatient treatment is contrai ndicated, as it will reinforce maladaptive behaviors. The patient is not psychotic and clearly seeking secondary gain for senior care and food. He has a history of this and also has a history of acting out when he does not get his way. Patient of resources Safely discharge MEDICATIONS: Restart previous meds Risks, benefits and alternatives of medications discussed with the patient, questions answered and consent obtained from patient. PSYCHOTHERAPY: Supportive psychotherapy provided MEDICAL: Per primary team DELIRIUM PRECAUTIONS: Please re-orient patient frequently, keep lights on during the day, and minimize benzodiazepines and opiates as these medications could worsen patient's confusion. CUSTOMER CONTACT REPRESENTATIVE: Per Medical Team DISPOSITION: No recommendation for acute inpatient psychiatric hospitalization at this time LEGAL STATUS: 1013 rescinded FOLLOW-UP: Will sign off Thank you for the consult. Please contact with any questions and/or concerns. Mental Status Exam - Vital signs Last Vital Signs Temp 98.0 F 11/15/19 01:55 Pulse 60 11/15/19 01:55 Resp 18 11/15/19 01:55 BP 109/68 11/15/19 01:55 Pulse Ox 97 11/15/19 01:55 Assessment and Plan - Patient Problems (1) Schizoaffective disorder, bipolar type Status: Acute (2) MDD (major depressive disorder), recurrent episode Status: Acute (3) Cocaine use disorder Status: Acute (4) Substance induced mood disorder Status: Acute
== END 2019-11-15 12:03 | disposition home or self-care (01) ==
LOC: ED 10:34 → EEVIPCON 10:34 → ED 11-15 12:03
DX: R45.851 Suicidal ideations (principal); F20.9 Schizophrenia, unspecified; Z98.890 Other specified postprocedural states; Z79.899 Other long term (current) drug therapy; Z91.013 Allergy to seafood; Z88.8 Allergy status to other drugs, medicaments and biological substances
CPT/HCPCS: 36415; 80048; 80307; 81001; 82962; 85025; 96372; 99284; J1200; J2060; J3486; J7030; 80320; G0480

== ENCOUNTER 2020-02-05 15:50 | Emergency (ER) | payer MEDICAID ==
[2020-02-05 16:51] VITALS: BP 109/71
--- NOTE | 2020-02-05 17:47 | Emergency Department Report ---
ED ENT HPI - General Chief complaint: Dental/Oral Stated complaint: TOOTH PAIN Time Seen by Provider: 02/05/20 17:28 Source: patient Mode of arrival: Ambulatory Limitations: No Limitations - History of Present Illness Initial comments: 34-year-old -[place]ish male presents to the emergency room for 1 day history of tooth pain and gum bleeding. Patient states he is aware that he has some bad teeth. Patient states is been taken Tylenol for pain is not helping. MD complaint: tooth pain Onset/Timin -: days(s) Location: tooth # (17) Severity: moderate Severity scale (0 -10): 8 Quality: aching, sharp Improves with: none Worsens with: none, eating Context- Dental: history of dental caries, poor dental care Associated Symptoms: gum swelling - Related Data Previous Rx's Medication Instructions Recorded Last Taken Type risperiDONE [RisperDAL] 1 mg PO BID #30 tablet 08/19/[address] [Angelica Trivedi] 500 mg PO BID #30 tablet 11/15/19 Unknown Rx Olanzapine [Olanzapine Odt] 10 mg PO QHS #30 tab.rapdis 11/15/19 Unknown Rx Amoxicillin [Amoxicillin TAB] 875 mg PO BID 10 Days #20 tablet 02/05/20 Unknown Rx Allergies Allergy/AdvReac Type Severity Reaction Status Date / Time turkey Allergy Unknown Verified 11/11/19 10:36 seafood AdvReac Vomiting Uncoded 01/14/18 17:20 ED Dental HPI - General Chief complaint: Dental/Oral Stated complaint: TOOTH PAIN Time Seen by Provider: 02/05/20 17:28 Source: patient Mode of arrival: Ambulatory Limitations: No Limitations - Related Data Previous Rx's Medication Instructions Recorded Last Taken Type risperiDONE [RisperDAL] 1 mg PO BID #30 tablet 08/19/[address] [Angelica Trivedi] 500 mg PO BID #30 tablet 11/15/19 Unknown Rx Olanzapine [Olanzapine Odt] 10 mg PO QHS #30 tab.rapdis 11/15/19 Unknown Rx Amoxicillin [Amoxicillin TAB] 875 mg PO BID 10 Days #20 tablet 02/05/20 Unknown Rx Allergies Allergy/AdvReac Type Severity Reaction Status Date / Time turkey Allergy Unknown Verified 11/11/19 10:36 seafood AdvReac Vomiting Uncoded 01/14/18 17:20 ED Review of Systems ROS: Stated complaint: TOOTH PAIN Other details as noted in HPI Comment: All other systems reviewed and negative ED Past Medical Hx - Past Medical History Previous Medical History?: No Hx Psychiatric Treatment: Yes (paranoid schiz) - Surgical History Past Surgical History?: No Additional Surgical History: arm , left thumb surgery. testicle removed - Social History Smoking Status: Current Every Day Smoker - Medications Home Medications: Home Medications Medication Instructions Recorded Confirmed Last Taken Type risperiDONE [RisperDAL] 1 mg PO BID #30 tablet 08/19/[address] [Depakote Dr] 500 mg PO BID #30 tablet 11/15/19 Unknown Rx Olanzapine [Olanzapine Odt] 10 mg PO QHS #30 tab.rapdis 11/15/19 Unknown Rx Amoxicillin [Amoxicillin TAB] 875 mg PO BID 10 Days #20 tablet 02/05/20 Unknown Rx ED Physical Exam - General Limitations: No Limitations General appearance: alert, in no apparent distress - Head Head exam: Present: atraumatic, normocephalic - Eye Eye exam: Present: normal appearance - Expanded ENT Exam Expanded Teeth exam: Present: dental tenderness # (17), gingival enlargement - Neurological Exam Neurological exam: Present: alert, oriented X3 - Psychiatric Psychiatric exam: Present: normal affect, normal mood - Skin Skin exam: Present: warm, dry, intact, normal color. Absent: rash ED Course Vital Signs 02/05/20 16:50 Temperature 97.4 F L Pulse Rate 62 Respiratory 18 Rate Blood Pressure 109/71 O2 Sat by Pulse 100 Oximetry ED Medical Decision Making - Medical Decision Making 34-year-old -[place] male presents to the emergency room for 1 day history of tooth pain and gum bleeding. Patient states he is aware that he has some bad teeth. Patient states is been taken Tylenol for pain is not helping. Patient be placed on amoxicillin and recommend ibuprofen for pain management. Critical care attestation.: If time is entered above; I have spent that time in minutes in the direct care of this critically ill patient, excluding procedure time. ED Disposition Clinical Impression: Dental abscess Disposition: DC-01 TO HOME OR SELFCARE Is pt being admited?: No Does the pt Need Aspirin: No Condition: Stable Instructions: Dental Abscess (ED) Additional Instructions: Complete antibiotics as prescribed. Take [id number] Tylenol or ibuprofen for pain management. Follow-up with a dentist. Also recommend to follow-up with [facility] for your chronic mental health disease. Prescriptions: Amoxicillin [Amoxicillin TAB] 875 mg PO BID 10 Days #20 tablet Referrals: [facility] [Outside] - 3-5 Days [facility] [Outside] - 3-5 Days [facility] [Outside] - 3-5 Days
== END 2020-02-05 18:02 | disposition home or self-care (01) ==
LOC: ED 15:50
DX: K04.7 Periapical abscess without sinus (principal); F17.200 Nicotine dependence, unspecified, uncomplicated; F20.0 Paranoid schizophrenia; Z98.890 Other specified postprocedural states; Z91.018 Allergy to other foods; Z91.013 Allergy to seafood
CPT/HCPCS: 99281

== ENCOUNTER 2020-04-13 21:08 | Emergency (ER) | payer MEDICAID ==
[2020-04-13 23:40] LABS: Basophils # (Auto) 0.1 K/mm3 (0.0-0.1); Basophils % (Auto) 0.8 % (0.0-1.8); Eosinophils # (Auto) 0.2 K/mm3 (0.0-0.4); Eosinophils % (Auto) 2.3 % (0.0-4.3); Hematocrit 50.6 % (35.5-45.6); Hemoglobin 17.3 gm/dl (11.8-15.2); Lymphocytes # (Auto) 2.7 K/mm3 (1.2-5.4); Lymphocytes % (Auto) 38.8 % (13.4-35.0); Mean Corpuscular HGB Conc 34 % (32-34); Mean Corpuscular Volume 88 fl (84-94); Monocytes # (Auto) 0.6 K/mm3 (0.0-0.8); Monocytes % (Auto) 8.8 % (0.0-7.3); Platelet Count 264 K/mm3 (140-440); Red Blood Count 5.77 M/mm3 (3.65-5.03); Red Cell Distribution Width 14.2 % (13.2-15.2)
[2020-04-13 23:51] LABS: BUN/Creatinine Ratio 8; Blood Urea Nitrogen 11 mg/dL (9-20); Calcium 9.2 mg/dL (8.4-10.2); Hemolysis Index 14
[2020-04-14 02:52] LABS: Bilirubin,Urine NEG (Negative); Blood,Urine NEG (Negative); Color,Urine Yellow (Yellow); Mucus,Urine 2+ /HPF; Protein,Urine <15 mg/dL mg/dL (Negative); WBC,Urine < 1.0 /HPF (0.0-6.0)
[2020-04-14 02:53] LABS: Amphetamine Screen,Urine Negative; Benzodiazepines Screen,Urine Negative; Cannabinoid Screen,Urine Negative; Methadone Screen,Urine Negative; Opiate Screen,Urine Negative
[2020-04-14 03:11] LABS: Cocaine Screen,Urine Positive
--- NOTE | 2020-04-14 09:48 | Emergency Department Report ---
HPI - General Chief Complaint: Psych Time Seen by Provider: 04/14/20 09:12 - HPI HPI: This is a 34-year-old male who presents to the emergency department with complaint of a 2-day history of auditory hallucinations, suicidal and homicidal ideations. The patient has a history of paranoid schizophrenia for which he says he has not been on medication for the past 1 to 2 months. He says that the auditory hallucinations are what are telling him to hurt himself and others. When asked if he has any particular plan, the patient says that he has been thin lavonne about using a gun. He does not own any firearms but says that he knows people who do. The homicidal ideations are nonspecific and not directed towards any 1 particular person or group. He denies any significant past medical history. The patient says that he follows with [facility] for psychiatry. ED Past Medical Hx - Past Medical History Previous Medical History?: Yes Hx Psychiatric Treatment: Yes (paranoid schiz) - Surgical History Past Surgical History?: Yes Additional Surgical History: arm , left thumb surgery. testicle removed - Social History Smoking Status: Current Every Day Smoker Substance Use Type: None - Medications Home Medications: Home Medications Medication Instructions Recorded Confirmed Last Taken Type risperiDONE [RisperDAL] 1 mg PO BID #30 tablet 08/19/19 04/14/20 08/19/19 Rx Divalproex [Angelica Trivedi] 500 mg PO BID #30 tablet 11/15/19 04/14/20 11/15/19 Rx Olanzapine [Olanzapine Odt] 10 mg PO QHS #30 tab.rapdis 11/15/19 04/14/20 11/15/19 Rx ED Review of Systems ROS: Stated complaint: HEARING VOICES FEELING SUICIAL HOMICIDAL Other details as noted in HPI Comment: All other systems reviewed and negative Constitutional: denies: fever Respiratory: denies: shortness of breath Cardiovascular: denies: chest pain Gastrointestinal: denies: abdominal pain Musculoskeletal: denies: back pain Neurological: denies: headache, weakness Psychiatric: auditory hallucinations, homicidal thoughts, suicidal thoughts Physical Exam - Physical Exam Vital Signs: Vital Signs 04/13/20 04/14/20 22:28 09:14 Temperature 98.0 F Pulse Rate 64 62 Respiratory 16 18 Rate Blood Pressure 111/77 Blood Pressure 110/73 [Left] O2 Sat by Pulse 100 100 Oximetry Physical Exam: GENERAL: The patient is well-developed well-nourished. HENT: Normocephalic. Atraumatic. Patient has moist mucous membranes. EYES: Extraocular motions are intact. NECK: Supple. Trachea is midline. CHEST/LUNGS: Clear to auscultation. There is no respiratory distress noted. HEART/CARDIOVASCULAR: Regular. There is no tachycardia. ABDOMEN: Abdomen is soft, nontender. Patient has normal bowel sounds. SKIN: Skin is warm and dry. NEURO: The patient is awake, alert, and oriented. The patient is cooperative. Normal speech. MUSCULOSKELETAL: There is no tenderness or deformity. There is no limitation range of motion. ED Course Vital Signs 04/13/20 04/14/20 22:28 09:14 Temperature 98.0 F Pulse Rate 64 62 Respiratory 16 18 Rate Blood Pressure 111/77 Blood Pressure 110/73 [Left] O2 Sat by Pulse 100 100 Oximetry ED Medical Decision Making - Lab Data Result diagrams: 04/13/20 23:11 04/13/20 23:11 - Medical Decision Making This patient presents to the emergency department with complaint of auditory hallucinations/command hallucinations causing suicidal and homicidal ideations. For this reason the patient has been made a 1013. Patient's labs have been mostly unremarkable including CBC, metabolic panel, blood alcohol level, urinalysis and UDS, except for the UDS was positive for cocaine. The patient does not appear acutely intoxicated. Vital signs reassuring throughout his ED course thus far including being afebrile. He was seen by the psychiatric team who agrees with the 1013 and plan for inpatient stabilization. Patient is medically cleared for psychiatric placement. Critical Care Time: No Critical care attestation.: If time is entered above; I have spent that time in minutes in the direct care of this critically ill patient, excluding procedure time. ED Disposition Clinical Impression: Cocaine use disorder, Schizoaffective disorder, bipolar type, Suicidal ideati ons, Homicidal ideations, History of command hallucinations Disposition: [id number]/TX-[id number] PSY HOSP/PSY UNIT Is pt being admited?: No Condition: Stable Time of Disposition: 13:23
--- NOTE | 2020-04-14 11:01 | Consultation ---
History of Present Illness - Reason for Consult Consult date: 04/14/20 Reason for consult: MHE Requesting physician: ISELA WOODALL - History of Present Psychiatric Illness Per ED Provider: This is a 34-year-old male who presents to the emergency department with complaint of a 2-day history of auditory hallucinations, s uicidal and homicidal ideations. The patient has a history of paranoid schizophrenia for which he says he has not been on medication for the past 1 to 2 months. He says that the auditory hallucinations are what are telling him to hurt himself and others. When asked if he has any particular plan, the patient says that he has been thinking about using a gun. He does not own any firearms but says that he knows people who do. The homicidal ideations are nonspecific and not directed towards any 1 particular person or group. He denies any significant past medical history. The patient says that he follows with [facility] for psychiatry. PSYCH HPI Patient is a 34 year old, unemployed single Male with past psychiatric history of paranoid schizophrenia who is known to me from prior encounter who presents today with chief complaint of commanding auditory hallucination telling patient to kill himself and also to hurt other people. Patient reported he currently lives in a dangerous neighborhood, and also out of his medication that he is getting mentally tormented with events happening in his neighborhood combined with the fact that his not on any medication at the moment and is why presented to the ED for acute mental health evaluation and management. Patient also says he is not happy because he has no family support and he feels very alone. PAST PSYCHIATRIC HISTORY Diagnoses: Paranoid Schizophrenia Suicide attempts or Self-harm behavior: n/a Prior psychiatric hospitalizations: Yes Substance Abuse history: Alcohol and cocaine Previous psychiatric medications tried: unknown Outpatient treatment: Yes PAST MEDICAL HISTORY: none reported Family Psychiatric History: None reported or documented SOCIAL HISTORY Marital Status: Single Living Arrangements: With self Employment Status: on disability Access to guns/weapons: none reported Education: 9th grade History of Abuse: none reported Legal History: Yes REVIEW OF SYSTEMS Constitutional: Negative for weight loss ENT: Negative for stridor Respiratory: Negative for cough or hemoptysis All other systems reviewed and are negative MENTAL STATUS EXAMINATION General Appearance and Behavior: Age appropriate, fair hygiene, wearing appropriate clothes, good eye contact, cooperative with questioning and irritable Cooperation: Participating but slightly Withdrawn Psychomotor Behavior: Psychomotor agitation Mood: " sand and depressed" Affect and affective range: dysthymic Thought Process: Logical Thought Content: Within reality Speech: pressured, loud volume, soft volume Suicidal Ideation: Endorses SI Homicidal Ideation: Denies HI Impulse Control: Unimpaired Insight and Judgment: Normal insight and judgment, Impaired Memory: Intact Attention: normal Orientation: Alert, oriented, anxious, and disorganized. Assessment and Plan - Psychiatric problem (1) Cocaine use disorder Current Visit: No Status: Acute (2) Schizoaffective disorder, bipolar type Current Visit: No Status: Acute RECOMMENDATIONS MEDICATIONS: Restart previous meds Risks, benefits and alternatives of medications discussed with the patient, questions answered and consent obtained from patient. PSYCHOTHERAPY: Supportive psychotherapy provided MEDICAL: Per primary team DELIRIUM PRECAUTIONS: Please re-orient patient frequently, keep lights on during the day, and minimize benzodiazepines and opiates as these medications could worsen patient's confusion. 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 Please contact with any questions and/or concerns. Medications and Allergies Allergies Allergy/AdvReac Type Severity Reaction Status Date / Time turkey Allergy Unknown Verified 11/11/19 10:36 seafood AdvReac Vomiting Uncoded 01/14/18 17:20 Home Medications Medication Instructions Recorded Confirmed Last Taken Type risperiDONE [RisperDAL] 1 mg PO BID #30 tablet 08/19/19 04/14/20 08/19/[address] [Angelica Trivedi] 500 mg PO BID #30 tablet 11/15/19 04/14/20 11/15/19 Rx Olanzapine [Olanzapine Odt] 10 mg PO QHS #30 tab.rapdis 11/15/19 04/14/20 11/15/19 Rx Mental Status Exam - Vital signs Last Vital Signs Temp 98.0 F 04/13/20 22:28 Pulse 62 04/14/20 09:14 Resp 18 04/14/20 09:14 BP 110/73 04/14/20 09:14 Pulse Ox 100 04/14/20 09:14 Results Result Diagrams: 04/13/20 23:11 04/13/20 23:11 Abnormal lab results 04/13/20 04/13/20 04/13/20 Range/Units 23:11 23:11 23:11 RBC (3.65-5.03) M/mm3 Hgb (11.8-15.2) gm/dl Hct (35.5-45.6) % Lymph % (Auto) (13.4-35.0) % Mccormick % (Auto) (0.0-7.3) % Chloride 107.6 H (98-107) mmol/L Salicylates < 0.3 L (2.8-20.0) mg/dL Acetaminophen 5.0 L (10.0-30.0) ug/mL 04/13/20 Range/Units 23:11 RBC 5.77 H (3.65-5.03) M/mm3 Hgb 17.3 H (11.8-15.2) gm/dl Hct 50.6 H (35.5-45.6) % Lymph % (Auto) 38.8 H (13.4-35.0) % Mccormick % (Auto) 8.8 H (0.0-7.3) % Chloride (98-107) mmol/L Salicylates (2.8-20.0) mg/dL Acetaminophen (10.0-30.0) ug/mL All other labs normal. Assessment and Plan - Psychiatric problem (1) Cocaine use disorder Current Visit: No Status: Acute (2) Schizoaffective disorder, bipolar type Current Visit: No Status: Acute
[2020-04-14] MEDS: DIVALPROEX DR 500 MG TAB PO SCH (21:32)
[2020-04-14] MEDS: OLANzapine ZYDIS 5 MG TAB PO SCH (21:33)
[2020-04-14] MEDS: risperiDONE 1 MG TAB PO SCH (21:34)
[2020-04-14] MEDS ORDERED: OLANZAPINE 10 MG PO SCH (22:00)
--- NOTE | 2020-04-15 11:06 | Progress Note ---
Subjective - Reason for Consult Consult date: 04/15/20 Reason for consult: MHE Requesting physician: ISELA WOODALL - Chief Complaint Chief complaint: Psych progress Patient is seen this a.m. report that he still feeling the same, still hearing voices suicidal and homicidal ideation, denies any acute plan reports reports compliance with his current medications. REVIEW OF SYSTEMS Constitutional: Negative for weight loss ENT: Negative for stridor Respiratory: Negative for cough or hemoptysis All other systems reviewed and are negative MENTAL STATUS EXAMINATION General Appearance and Behavior: Age appropriate, fair hygiene, wearing appropriate clothes, good eye contact, cooperative with questioning and irritable Cooperation: Participating but slightly Withdrawn Psychomotor Behavior: Psychomotor agitation Mood: " sand and depressed" Affect and affective range: dysthymic Thought Process: Logical Thought Content: Within reality Speech: pressured, loud volume, soft volume Suicidal Ideation: Endorses SI Homicidal Ideation: Denies HI Impulse Control: Unimpaired Insight and Judgment: Normal insight and judgment, Impaired Memory: Intact Attention: normal Orientation: Alert, oriented, anxious, and disorganized. Assessment and Plan - Psychiatric problem (1) Cocaine use disorder Current Visit: No Status: Acute (2) Schizoaffective disorder, bipolar type Current Visit: No Status: Acute RECOMMENDATIONS MEDICATIONS: Restart previous meds Risks, benefits and alternatives of medications discussed with the patient, questions answered and consent obtained from patient. PSYCHOTHERAPY: Supportive psychotherapy provided MEDICAL: Per primary team DELIRIUM PRECAUTIONS: Please re-orient patient frequently, keep lights on during the day, and minimize benzodiazepines and opiates as these medications could worsen patient's confusion. 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 Please contact with any questions and/or concerns. Mental Status Exam - Vital signs Last Vital Signs Temp 97.4 F L 04/15/20 07:48 Pulse 62 04/15/20 07:48 Resp 16 04/15/20 07:48 BP 92/55 04/15/20 07:48 Pulse Ox 98 04/15/20 07:48 Assessment and Plan - Patient Problems (1) Cocaine use disorder Current Visit: Yes Status: Acute (2) Schizoaffective disorder, bipolar type Current Visit: Yes Status: Acute
[2020-04-15] MEDS: risperiDONE 1 MG TAB PO SCH ×2 (11:16→21:59)
[2020-04-15] MEDS: DIVALPROEX DR 500 MG TAB PO SCH ×2 (11:16→21:59)
[2020-04-15] MEDS: FLUoxetine 20 MG CAP PO SCH (12:38)
[2020-04-15] MEDS: OLANzapine ZYDIS 5 MG TAB PO SCH (21:59)
--- NOTE | 2020-04-16 10:31 | Progress Note ---
Subjective - Reason for Consult Consult date: 04/16/20 Reason for consult: MHE Requesting physician: ISELA WOODALL - Chief Complaint Chief complaint: Psych progress Patient seen today in room resting comfortably, today patient reports he still having chest little bit of suicidal thoughts. Patient reported was just [facility] from [facility] on Tuesday for battery and did not have anywhere to go. I informed patient about is inappropriate behaviors reported by nurses and asked he be respectful, Patient says he feels like the people here do not like him and they are against him with lies. REVIEW OF SYSTEMS Constitutional: Negative for weight loss ENT: Negative for stridor Respiratory: Negative for cough or hemoptysis All other systems reviewed and are negative MENTAL STATUS EXAMINATION General Appearance and Behavior: Age appropriate, fair hygiene, wearing appropriate clothes, good eye contact, cooperative with questioning and irritable Cooperation: Participating but slightly Withdrawn Psychomotor Behavior: Psychomotor agitation Mood: " sand and depressed" Affect and affective range: dysthymic Thought Process: Logical Thought Content: Within reality Speech: pressured, loud volume, soft volume Suicidal Ideation: Endorses little bit of SI Homicidal Ideation: Denies HI Impulse Control: Unimpaired Insight and Judgment: Normal insight and judgment, Impaired Memory: Intact Attention: normal Orientation: Alert, oriented, anxious, and disorganized. Assessment and Plan - Psychiatric problem (1) Cocaine use disorder Current Visit: No Status: Acute (2) Schizoaffective disorder, bipolar type Current Visit: No Status: Acute RECOMMENDATIONS MEDICATIONS: Restart previous meds. Will stabilize with meds for one more and discharge tomorrow, patient seems to be mallingering, was recently released from [facility] for batter and was also positive for cocaine on arrival. Risks, benefits and alternatives of medications discussed with the patient, q uestions answered and consent obtained from patient. PSYCHOTHERAPY: Supportive psychotherapy provided MEDICAL: Per primary team DELIRIUM PRECAUTIONS: Please re-orient patient frequently, keep lights on during the day, and minimize benzodiazepines and opiates as these medications could worsen patient's confusion. 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 Please contact with any questions and/or concerns. Mental Status Exam - Vital signs Last Vital Signs Temp 97.6 F 04/16/20 08:14 Pulse 80 04/16/20 08:14 Resp 20 04/16/20 08:14 BP 114/63 04/16/20 08:14 Pulse Ox 100 04/16/20 08:14 Assessment and Plan - Patient Problems (1) Cocaine use disorder Current Visit: Yes Status: Acute (2) Schizoaffective disorder, bipolar type Current Visit: Yes Status: Acute
[2020-04-16] MEDS: DIVALPROEX DR 500 MG TAB PO SCH ×2 (11:33→21:49)
[2020-04-16] MEDS: risperiDONE 1 MG TAB PO SCH ×2 (11:33→21:49)
[2020-04-16] MEDS: FLUoxetine 20 MG CAP PO SCH (11:33)
[2020-04-16] MEDS: OLANzapine ZYDIS 5 MG TAB PO SCH (21:49)
[2020-04-17 10:20] VITALS: BP 126/77
[2020-04-17] MEDS: risperiDONE 1 MG TAB PO SCH (10:36)
[2020-04-17] MEDS: DIVALPROEX DR 500 MG TAB PO SCH (10:36)
[2020-04-17] MEDS: FLUoxetine 20 MG CAP PO SCH (10:36)
--- NOTE | 2020-04-17 11:00 | Progress Note ---
Subjective - Reason for Consult Consult date: 04/17/20 Reason for consult: MHE Requesting physician: ISELA WOODALL - Chief Complaint Chief complaint: Psych progress Patient seen today in the room, patient reported feeling better today, patient then requested to be given an additional more day to stay till tomorrow. I informed patient that he can continue treatment outpatient and I will be discharging him on current medication. Patient then reverted to statement says he is feeling suicidal and still hearing voices. REVIEW OF SYSTEMS Constitutional: Negative for weight loss ENT: Negative for stridor Respiratory: Negative for cough or hemoptysis All other systems reviewed and are negative MENTAL STATUS EXAMINATION General Appearance and Behavior: Age appropriate, fair hygiene, wearing appropriate clothes, good eye contact, cooperative with questioning and irritable Cooperation: Participating and engaged Psychomotor Behavior: Slight psychomotor agitation Mood: " Down" Affect and affective range: Congruent Thought Process: Logical Thought Content: Within reality Speech: Normal rate and tone Suicidal Ideation: Endorses little bit of SI Homicidal Ideation: Denies HI Impulse Control: Unimpaired Insight and Judgment: Normal insight and judgment, Impaired Memory: Intact Attention: normal Orientation: Alert, oriented Assessment and Plan - Psychiatric problem (1) Cocaine use disorder Current Visit: No Status: Acute (2) Schizoaffective disorder, bipolar type Current Visit: No Status: Acute Again I reaffirmed my decision for outpatient follow-up with the patient, given homelessness recent [facility] from [facility], and mismanagement of his Social Security income, patient is currently seeking senior care and food in the hospital. Granting patient's current request for 1 more day would reinforce malingering behavior. RECOMMENDATIONS MEDICATIONS: Discharged with current med Risks, benefits and alternatives of medications discussed with the patient, questions answered and consent obtained from patient. PSYCHOTHERAPY: Supportive psychotherapy provided MEDICAL: Per primary team DELIRIUM PRECAUTIONS: Please re-orient patient frequently, keep lights on during the day, and minimize benzodiazepines and opiates as these medications could worsen patient's confusion. 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 Please contact with any questions and/or concerns. Mental Status Exam - Vital signs Last Vital Signs Temp 97.8 F 04/17/20 10:18 Pulse 65 11/19/20 10:18 Resp 18 04/17/20 10:18 BP 126/77 04/17/20 10:18 Pulse Ox 100 04/17/20 10:18 Assessment and Plan - Patient Problems (1) Cocaine use disorder Status: Acute (2) Schizoaffective disorder, bipolar type Status: Acute
== END 2020-04-17 14:50 | disposition home or self-care (01) ==
LOC: ED 21:08
DX: R45.851 Suicidal ideations (principal); R45.850 Homicidal ideations; F25.0 Schizoaffective disorder, bipolar type; F14.10 Cocaine abuse, uncomplicated; F17.200 Nicotine dependence, unspecified, uncomplicated; Z98.890 Other specified postprocedural states; Z79.899 Other long term (current) drug therapy; Z91.013 Allergy to seafood; Z91.018 Allergy to other foods
CPT/HCPCS: 36415; 80048; 80307; 81001; 85025; 99285; U0003; 80320; G0480

== ENCOUNTER 2020-06-19 23:49 | Emergency (ER) | payer MEDICAID ==
--- NOTE | 2020-06-20 01:55 | Emergency Department Report ---
Blank Doc - Documentation Documentation: 35-year-old male with with bipolar and depression reporting auditory hallucina tions. We will start the mental health protocol and psych hold This initial assessment/diagnostic orders/clinical plan/treatment(s) is/are subject to change based on patients health status, clinical progression and re- assessment by fellow clinical providers in the ED. Further treatment and workup at subsequent clinical providers discretion. Patient/guardian urged not to elope from the ED as their condition may be serious if not clinically assessed and managed. Initial orders include: Mental health health protocol initiated
[2020-06-20 02:13] LABS: Basophils # (Auto) 0.1 K/mm3 (0.0-0.1); Basophils % (Auto) 1.5 % (0.0-1.8); Eosinophils # (Auto) 0.1 K/mm3 (0.0-0.4); Eosinophils % (Auto) 0.8 % (0.0-4.3); Hematocrit 51.3 % (35.5-45.6); Hemoglobin 17.4 gm/dl (11.8-15.2); Lymphocytes # (Auto) 2.4 K/mm3 (1.2-5.4); Lymphocytes % (Auto) 30.6 % (13.4-35.0); Mean Corpuscular HGB Conc 34 % (32-34); Mean Corpuscular Volume 88 fl (84-94); Monocytes # (Auto) 0.7 K/mm3 (0.0-0.8); Monocytes % (Auto) 8.8 % (0.0-7.3); Platelet Count 289 K/mm3 (140-440); Red Blood Count 5.84 M/mm3 (3.65-5.03); Red Cell Distribution Width 13.7 % (13.2-15.2)
[2020-06-20 02:28] LABS: Calcium 9.6 mg/dL (8.4-10.2)
[2020-06-20 02:56] LABS: Bilirubin,Urine NEG (Negative); Blood,Urine NEG (Negative); Color,Urine Yellow (Yellow); Mucus,Urine FEW /HPF; Protein,Urine <15 mg/dL mg/dL (Negative)
[2020-06-20 03:03] LABS: Amphetamine Screen,Urine PRESUMPTIVE NEGATIVE; Benzodiazepines Screen,Urine PRESUMPTIVE NEGATIVE; Cannabinoid Screen,Urine PRESUMPTIVE NEGATIVE; Cocaine Screen,Urine PRESUMPTIVE NEGATIVE; Methadone Screen,Urine PRESUMPTIVE NEGATIVE; Opiate Screen,Urine PRESUMPTIVE NEGATIVE
--- NOTE | 2020-06-20 03:03 | Emergency Department Report ---
<GERRY JASMINEMARTIR Dodd - Last Filed: 06/20/20 03:21> ED Psych HPI - General Chief Complaint: Psych Stated Complaint: MH Time Seen by Provider: 06/20/20 02:40 Source: patient Mode of arrival: Ambulatory Limitations: No Limitations - History of Present Illness Initial Comments: Patient is a 35-year-old male who presents emergency room with complaints of suicidal ideation, audio hallucinations and paranoia. Patient states that his symptoms been going on for 2 to 3 days. Patient states symptoms are worsening. Patient states he thinks people are out to get him. Patient states he has suicidal ideation and is depressed but has no plan. Patient states he just does not want to live. Patient states that voices are talking to him and telling him to hurt himself. Patient denies recent travel. Patient denies recent international travel. Patient denies exposure to the novel coronavirus. Patient denies sick contacts. Patient denies fever and chills. Patient denies cough. Patient denies diarrhea. Patient denies coming in contact with anybody with symptoms of the novel coronavirus. MD Complaint: suicidal ideation, feels depressed -: Sudden Associated Psychiatric Symptoms: suicidal ideation, racing thoughts, auditory hallucinations, delusions History of same: No Quality: constant Improves With: none Worsens With: none Associated Symptoms: denies: confusion, headache, shortness of breath, nausea, vomiting, syncope, insomnia If Self Harm: admits thoughts of - Related Data Previous Rx's Medication Instructions Recorded Last Taken Type Divalproex Dr [Depakote Dr] 500 mg PO BID #30 tablet 04/17/20 Unknown Rx Olanzapine [Olanzapine Odt] 10 mg PO QHS #30 tab.rapdis 04/17/20 Unknown Rx FLUoxetine [PROzac] 40 mg PO DAILY #30 capsule 06/22/20 Unknown Rx Allergies Allergy/AdvReac Type Severity Reaction Status Date / Time turkey Allergy Unknown Verified 11/11/19 10:36 seafood AdvReac Vomiting Uncoded 01/14/18 17:20 ED Review of Systems Constitutional: denies: chills, fever Eyes: denies: eye pain, eye discharge, vision change ENT: denies: ear pain, throat pain Respiratory: denies: cough, shortness of breath, wheezing Cardiovascular: denies: chest pain, palpitations Endocrine: no symptoms reported Gastrointestinal: denies: abdominal pain, nausea, diarrhea Genitourinary: denies: urgency, dysuria Musculoskeletal: denies: back pain, joint swelling, arthralgia Skin: denies: rash, lesions Neurological: denies: headache, weakness, paresthesias Psychiatric: depression, auditory hallucinations, suicidal thoughts. denies: anxiety, visual hallucinations, homicidal thoughts Hematological/Lymphatic: denies: easy bleeding, easy bruising ED Past Medical Hx - Past Medical History Previous Medical History?: Yes Hx Psychiatric Treatment: Yes (paranoid schiz) - Surgical History Past Surgical History?: Yes Additional Surgical History: arm , left thumb surgery. testicle removed - Social History Smoking Status: Current Every Day Smoker Substance Use Type: None - Medications Home Medications: Home Medications Medication Instructions Recorded Confirmed Last Taken Type Divalproex Dr [Depakote Dr] 500 mg PO BID #30 tablet 04/17/20 Unknown Rx Olanzapine [Olanzapine Odt] 10 mg PO QHS #30 tab.rapdis 04/17/20 Unknown Rx FLUoxetine [PROzac] 40 mg PO DAILY #30 capsule 06/22/20 Unknown Rx ED Physical Exam - General Limitations: No Limitations General appearance: alert, in no apparent distress - Head Head exam: Present: atraumatic, normocephalic - Eye Eye exam: Present: normal appearance - ENT ENT exam: Present: mucous membranes moist - Neck Neck exam: Present: normal inspection - Respiratory Respiratory exam: Present: normal lung sounds bilaterally. Absent: respiratory distress - Cardiovascular Cardiovascular Exam: Present: regular rate, normal rhythm. Absent: systolic murmur, diastolic murmur, rubs, gallop - GI/Abdominal GI/Abdominal exam: Present: soft, normal bowel sounds - Rectal Rectal exam: Present: deferred - Extremities Exam Extremities exam: Present: normal inspection - Back Exam Back exam: Present: normal inspection - Neurological Exam Neurological exam: Present: alert, oriented X3 - Psychiatric Psychiatric exam: Present: flat affect, suicidal ideation - Expanded Psychiatric Exam Expanded Focused psych exam: Present: paranoid, loose associations - Skin Skin exam: Present: warm, dry, intact, normal color. Absent: rash ED Course - Reevaluation(s) Reevaluation #1: I discussed all results and clinical findings with patient. I discussed plan of care with patient. Patient agrees with plan of care. Patient is medically cleared. Patient final disposition will come from our psychiatry team. 06/20/20 03:21 ED Medical Decision Making - Lab Data Result diagrams: 06/20/20 01:52 06/20/20 01:52 - Medical Decision Making Patient is a 35-year-old male that presents emergency room for suicidal ideation, hallucinations, command hallucinations and paranoia. Patient had medical clearing labs. Patient's labs were essentially unremarkable. Patient is medically stable. Patient's final disposition will come from our mental health team. Patient's placed on a ER hold and will be to our psych area. Patient final disposition will come from our psychiatry team. - Differential Diagnosis Hallucinations, psychosis, suicidal ideations, depression ED Disposition Clinical Impression: Schizoaffective disorder, bipolar type, MDD (major depressive disorder), recurrent episode, Cocaine use disorder, Substance induced mood disorder Disposition: DC-01 TO HOME OR SELFCARE Is pt being admited?: No Does the pt Need Aspirin: No Condition: Stable Prescriptions: FLUoxetine [PROzac] 40 mg PO DAILY #30 capsule Time of Disposition: 03:28 <BRENDON EVANS - Last Filed: 06/22/20 12:36> ED Review of Systems ROS: Stated complaint: MH Other details as noted in HPI ED Course Vital Signs 06/20/20 06/20/20 06/20/20 00:50 04:05 19:55 Temperature 98.7 F 98.5 F 97.9 F Pulse Rate 94 H 75 66 Respiratory 16 18 18 Rate Blood Pressure 108/77 Blood Pressure 120/89 100/51 [Left] O2 Sat by Pulse 98 99 100 Oximetry 06/21/20 06/21/20 06/21/20 06:30 08:37 09:00 Temperature 98.0 F 97.9 F Pulse Rate 60 80 Respiratory 18 20 20 Rate Blood Pressure Blood Pressure 101/55 110/73 [Left] O2 Sat by Pulse 98 97 97 Oximetry 06/21/20 06/21/20 20:00 21:00 Temperature 97.8 F Pulse Rate 66 Respiratory 16 16 Rate Blood Pressure Blood Pressure 109/76 [Left] O2 Sat by Pulse 96 96 Oximetry ED Medical Decision Making - Lab Data Result diagrams: 06/20/20 01:52 06/20/20 01:52 - Medical Decision Making 1013 rescinded by psychiatric team. Patient is discharged. Critical care attestation.: If time is entered above; I have spent that time in minutes in the direct care of this critically ill patient, excluding procedure time. ED Disposition Is pt being admited?: No Does the pt Need Aspirin: No
[2020-06-20] MEDS ORDERED: ZIPRASIDONE MESYLATE 20 MG VIAL IM ONE ×3 (04:12→22:33)
[2020-06-20] MEDS ORDERED: WATER FOR INJ Sterile (PF) 10 ML ONE (04:16)
--- NOTE | 2020-06-20 09:06 | Consultation ---
History of Present Illness - Reason for Consult Consult date: 06/20/20 Reason for consult: MHE Requesting physician: MARTIR GARRETT III - History of Present Psychiatric Illness Per ED Provider: Patient is a 35-year-old male who presents emergency room with complaints of suicidal ideation, audio hallucinations and paranoia. Patient states that his symptoms been going on for 2 to 3 days. Patient states symptoms are worsening. Patient states he thinks people are out to get him. Patient states he has suicidal ideation and is depressed but has no plan. Patient states he just does not want to live. Patient states that voices are talking to him and telling him to hurt himself. PSYCH HPI Patient is a 34 year old, unemployed single Male with past psychiatric history of paranoid schizophrenia who is known to me from prior encounter who presents today with chief complaint of commanding auditory hallucinations. Patient reports he is tired of his life and seems everyone is turning against him. He endorses recent substance use, medication non compliance and life disorganization and feels like everyone just treat him like an no good individual. This patient is well known to me from prior encounters, has substantial illicit drug use in past and non compliant with medications but states he had not been using any substance this down, but emotionally broken down and wants to restart medication and have goals and expectations for himself this year. PAST PSYCHIATRIC HISTORY Diagnoses: Paranoid Schizophrenia Suicide attempts or Self-harm behavior: n/a Prior psychiatric hospitalizations: Yes Substance Abuse history: Alcohol and cocaine Previous psychiatric medications tried: unknown Outpatient treatment: Yes PAST MEDICAL HISTORY: none reported Family Psychiatric History: None reported or documented SOCIAL HISTORY Marital Status: Single Living Arrangements: With self Employment Status: on disability Access to guns/weapons: none reported Education: 9th grade History of Abuse: none reported Legal History: Yes REVIEW OF SYSTEMS Constitutional: Negative for weight loss ENT: Negative for stridor Respiratory: Negative for cough or hemoptysis All other systems reviewed and are negative MENTAL STATUS EXAMINATION General Appearance and Behavior: Age appropriate, fair hygiene, wearing appropriate clothes, good eye contact, cooperative with questioning and irritable Cooperation: Participating but slightly Withdrawn Psychomotor Behavior: Psychomotor agitation Mood: " sand and depressed" Affect and affective range: dysthymic Thought Process: Logical Thought Content: Within reality Speech: pressured, loud volume, soft volume Suicidal Ideation: Endorses SI Homicidal Ideation: Denies HI Impulse Control: Unimpaired Insight and Judgment: Normal insight and judgment, Impaired Memory: Intact Attention: normal Orientation: Alert, oriented, anxious, and disorganized. Assessment and Plan - Psychiatric problem (1) Schizoaffective disorder Current Visit: Yes Status: Acute F25.9 (2) MDD (major depressive disorder) Current Visit: Yes Status: Acute (PRIMARY) F33.1 RECOMMENDATIONS MEDICATIONS: Restart previous meds Risks, benefits and alternatives of medications discussed with the patient, questions answered and consent obtained from patient. PSYCHOTHERAPY: Supportive psychotherapy provided MEDICAL: Per primary team DELIRIUM PRECAUTIONS: Please re-orient patient frequently, keep lights on during the day, and minimize benzodiazepines and opiates as these medications could worsen patient's confusion. 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 Please contact with any questions and/or concerns. Medications and Allergies Allergies Allergy/AdvReac Type Severity Reaction Status Date / Time turkey Allergy Unknown Verified 11/11/19 10:36 seafood AdvReac Vomiting Uncoded 01/14/18 17:20 Home Medications Medication Instructions Recorded Confirmed Last Taken Type Divalproex Dr [Depakote Dr] 500 mg PO BID #30 tablet 04/17/20 Unknown Rx FLUoxetine [PROzac] 20 mg PO DAILY #30 capsule 04/17/20 Unknown Rx Olanzapine [Olanzapine Odt] 10 mg PO QHS #30 tab.rapdis 04/17/20 Unknown Rx Mental Status Exam - Vital signs Last Vital Signs Temp 98.5 F 06/20/20 04:05 Pulse 75 06/20/20 04:05 Resp 18 06/20/20 04:05 BP 120/89 06/20/20 04:05 Pulse Ox 99 06/20/20 04:05 Results Result Diagrams: 06/20/20 01:52 06/20/20 01:52 Abnormal lab results 06/20/20 06/20/20 06/20/20 Range/Units 01:52 01:52 01:52 RBC (3.65-5.03) M/mm3 Hgb (11.8-15.2) gm/dl Hct (35.5-45.6) % [place] % (Auto) (0.0-7.3) % Creatinine 1.6 H (0.8-1.3) mg/dL Salicylates < 0.3 L (2.8-20.0) mg/dL Acetaminophen 5.0 L (10.0-30.0) ug/mL 06/20/20 Range/Units 01:52 RBC 5.84 H (3.65-5.03) M/mm3 Hgb 17.4 H (11.8-15.2) gm/dl Hct 51.3 H (35.5-45.6) % [place] % (Auto) 8.8 H (0.0-7.3) % Creatinine (0.8-1.3) mg/dL Salicylates (2.8-20.0) mg/dL Acetaminophen (10.0-30.0) ug/mL All other labs normal. Assessment and Plan - Psychiatric problem (1) Schizoaffective disorder Current Visit: Yes Status: Acute
[2020-06-20] MEDS ORDERED: risperiDONE 0.25 MG TAB PO SCH (11:00)
[2020-06-20] MEDS: VALPROIC ACID 250 MG CAP PO SCH ×2 (11:48→21:41)
[2020-06-20] MEDS: risperiDONE 1 MG TAB PO SCH ×2 (11:48→21:41)
[2020-06-20] MEDS: WATER FOR INJ Sterile (PF) 10 ML ONE ×2 (22:45→22:46)
--- NOTE | 2020-06-21 08:53 | Progress Note ---
Subjective - Reason for Consult Consult date: 06/21/20 Reason for consult: MHE Requesting physician: MARTIR GARRETT III - Chief Complaint Chief complaint: Psych Progress Patient reported not feeling too well today, still feeling the same morning, endorses being paranoid suicidal and hearing voices. Patient states she does really want to get better because he has stopped taking drugs, his UDS was negative for substance use, and he endorses a good sleep and appetite. REVIEW OF SYSTEMS Constitutional: Negative for weight loss ENT: Negative for stridor Respiratory: Negative for cough or hemoptysis All other systems reviewed and are negative MENTAL STATUS EXAMINATION General Appearance and Behavior: Age appropriate, fair hygiene, wearing appropriate clothes, good eye contact, cooperative with questioning and irritable Cooperation: Participating but slightly Withdrawn Psychomotor Behavior: Psychomotor agitation Mood: " sand and depressed" Affect and affective range: dysthymic Thought Process: Logical Thought Content: Within reality Speech: pressured, loud volume, soft volume Suicidal Ideation: Endorses SI Homicidal Ideation: Denies HI Impulse Control: Unimpaired Insight and Judgment: Normal insight and judgment, Impaired Memory: Intact Attention: normal Orientation: Alert, oriented, anxious, and disorganized. Assessment and Plan - Psychiatric problem (1) Schizoaffective disorder Current Visit: Yes Status: Acute F25.9 (2) MDD (major depressive disorder) Current Visit: Yes Status: Acute (PRIMARY) F33.1 RECOMMENDATIONS MEDICATIONS: Restart previous meds Risks, benefits and alternatives of medications discussed with the patient, questions answered and consent obtained from patient. PSYCHOTHERAPY: Supportive psychotherapy provided MEDICAL: Per primary team DELIRIUM PRECAUTIONS: Please re-orient patient frequently, keep lights on during the day, and minimize benzodiazepines and opiates as these medications could worsen patient's confusion. 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 Please contact with any questions and/or concerns. Mental Status Exam - Vital signs Last Vital Signs Temp 97.9 F 06/21/20 08:37 Pulse 80 06/21/20 08:37 Resp 20 06/21/20 08:37 BP 110/73 06/21/20 08:37 Pulse Ox 97 06/21/20 08:37 Assessment and Plan - Patient Problems (1) Schizoaffective disorder Current Visit: Yes Status: Acute
[2020-06-21] MEDS: VALPROIC ACID 250 MG CAP PO SCH ×2 (09:57→22:43)
[2020-06-21] MEDS: risperiDONE 1 MG TAB PO SCH ×2 (09:57→22:43)
[2020-06-21 20:17] VITALS: BP 109/76
--- NOTE | 2020-06-22 08:26 | Progress Note ---
Subjective - Reason for Consult Consult date: 06/22/20 Reason for consult: MHE Requesting physician: MARTIR GARRETT III - Chief Complaint Chief complaint: Psych Progress Patient seen this AM in room, and in isolation, covid positive. Patient inform doesnt feel too well, informed patient at this time outpt psychiatric follow up and counselling is recommended and he can be managed medically for any other medical related issues. Patient agrees and consent to plan REVIEW OF SYSTEMS Constitutional: Negative for weight loss ENT: Negative for stridor Respiratory: Negative for cough or hemoptysis All other systems reviewed and are negative MENTAL STATUS EXAMINATION General Appearance and Behavior: Age appropriate, wearing appropriate clothes, good eye contact, cooperative with questioning and irritable Cooperation: Participating but slightly Withdrawn Psychomotor Behavior: Psychomotor agitation Mood: "nt good" Affect and affective range: dysthymic Thought Process: Logical Thought Content: Within reality Speech: pressured, loud volume, soft volume Suicidal Ideation: Passive Homicidal Ideation: Denies HI Impulse Control: Unimpaired Insight and Judgment: Normal insight and judgment, Impaired Memory: Intact Attention: normal Orientation: Alert, oriented, anxious, and disorganized. Assessment and Plan - Psychiatric problem (1) Schizoaffective disorder Current Visit: Yes Status: Acute F25.9 (2) MDD (major depressive disorder) Current Visit: Yes Status: Acute (PRIMARY) F33.1 RECOMMENDATIONS MEDICATIONS: patient provided 2 refills on olazapine from March encounter. Risks, benefits and alternatives of medications discussed with the patient, questions answered and consent obtained from patient. PSYCHOTHERAPY: Supportive psychotherapy provided MEDICAL: Per primary team DELIRIUM PRECAUTIONS: Please re-orient patient frequently, keep lights on during the day, and minimize benzodiazepines and opiates as these medications could worsen patient's confusion. 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 Safety discharge plan at this time with and outpt counselling. Disposition discussed with Dr. Leslie. LEGAL STATUS: 1013 rescinded FOLLOW-UP: Will sign off Thank you for the consult. Please contact with any questions and/or concerns. Mental Status Exam - Vital signs Last Vital Signs Temp 97.8 F 06/21/20 20:00 Pulse 66 06/21/20 20:00 Resp 16 06/21/20 21:00 BP 109/76 06/21/20 20:00 Pulse Ox 96 06/21/20 21:00 Assessment and Plan - Patient Problems (1) Schizoaffective disorder Current Visit: Yes Status: Acute
== END 2020-06-22 13:28 | disposition home or self-care (01) ==
LOC: ED 23:49
DX: F25.0 Schizoaffective disorder, bipolar type (principal); F14.10 Cocaine abuse, uncomplicated; F19.29 Other psychoactive substance dependence with unspecified psychoactive substance-induced disorder; F17.200 Nicotine dependence, unspecified, uncomplicated; Z79.899 Other long term (current) drug therapy; Z91.013 Allergy to seafood; Z20.828 Contact with and (suspected) exposure to other viral communicable diseases
CPT/HCPCS: 36415; 80048; 80307; 81001; 85025; 96372; 99284; J3486; U0003; 80320; G0480

== ENCOUNTER 2021-12-27 00:38 | Emergency (ER) | payer MEDICAID ==
--- NOTE | 2021-12-27 02:24 | Emergency Department Report ---
ED Psych HPI - General Chief Complaint: Psych Stated Complaint: HEARING VOICES Time Seen by Provider: 12/27/21 02:16 Source: patient Mode of arrival: Ambulatory - History of Present Illness Initial Comments: 36-year-old male with a history of schizophrenia who came in with suicidal ideation and depression feeling for the last 3 days progressively getting worse. Patient denies any homicidal ideation. No recent trauma or fall reported. Patient reported that he has not been taking his medicine for about a month or 2. No other modifying or associated factors reported. - Related Data Previous Rx's Medication Instructions Recorded Last Taken Type Divalproex Dr [Depakote Dr] 500 mg PO BID #30 tablet 04/17/20 Unknown Rx Olanzapine [Olanzapine Odt] 10 mg PO QHS #30 tab.rapdis 04/17/20 Unknown Rx FLUoxetine [PROzac] 40 mg PO DAILY #30 capsule 06/22/20 Unknown Rx Allergies Allergy/AdvReac Type Severity Reaction Status Date / Time turkey Allergy Unknown Verified 11/11/19 10:36 seafood AdvReac Vomiting Uncoded 01/14/18 17:20 ED Review of Systems ROS: Stated complaint: HEARING VOICES Other details as noted in HPI Comment: All other systems reviewed and negative Psychiatric: anxiety, suicidal thoughts ED Past Medical Hx - Past Medical History Hx Psychiatric Treatment: Yes (paranoid schiz) - Surgical History Additional Surgical History: arm , left thumb surgery. testicle removed - Social History Smoking Status: Current Every Day Smoker - Medications Home Medications: Home Medications Medication Instructions Recorded Confirmed Last Taken Type Divalproex Dr [Depakote Dr] 500 mg PO BID #30 tablet 04/17/20 Unknown Rx Olanzapine [Olanzapine Odt] 10 mg PO QHS #30 tab.rapdis 04/17/20 Unknown Rx FLUoxetine [PROzac] 40 mg PO DAILY #30 capsule 06/22/20 Unknown Rx ED Physical Exam - General Limitations: No Limitations General appearance: alert, in no apparent distress - Head Head exam: Present: normal inspection - Eye Eye exam: Present: normal appearance Pupils: Present: normal accommodation - ENT ENT exam: Present: normal exam, normal orophraynx, mucous membranes moist - Neck Neck exam: Present: normal inspection - Respiratory Respiratory exam: Present: normal lung sounds bilaterally. Absent: respiratory distress, accessory muscle use - Cardiovascular Cardiovascular Exam: Present: regular rate, normal rhythm, normal heart sounds - GI/Abdominal GI/Abdominal exam: Present: soft, normal bowel sounds. Absent: distended, tenderness - Extremities Exam Extremities exam: Present: normal inspection, full ROM, normal capillary refill. Absent: pedal edema - Back Exam Back exam: Present: normal inspection - Neurological Exam Neurological exam: Present: alert, oriented X3 - Psychiatric Psychiatric exam: Present: normal affect, anxious - Skin Skin exam: Present: warm, normal color ED Course Vital Signs 12/27/21 12/27/21 12/27/21 01:55 02:12 02:13 Temperature 98.6 F 98.9 F Pulse Rate 74 98 H Respiratory 18 18 Rate Blood Pressure 125/74 Blood Pressure 111/63 [Left] O2 Sat by Pulse 97 98 99 Oximetry ED Medical Decision Making - Medical Decision Making Here with depression and feeling and suicidal thoughts--differential diagnosis, including but not limited to: Encounter for behavioral health screening examination, encounter for medical screening examination--Due to these will go ahead and other routine labs studies including CBC, CMP and UA with UDS and thyroid profile in anticipation for mental health evaluation. Assessment and plan: here with concern with depressive feeling and suicidal ideation --but noted with reassuring vital signs, in no acute distress, who is cooperative, ANO x3, not homicidal but suicidal. At this point in time, this patient is cleared medically for psychiatry evaluation and recommendation. I will go ahead and order a 1013. He has not demonstrated any witnessed behavior here in the ED that would be consistent with acute decompensated psychosis. I have ordered mental health evaluation. Will go ahead and order typical laboratory studies in anticipation of mental health requests. Laboratory studies are reviewed and are unremarkable at this time. Awaiting mental health consultation and evaluation. Ultimate disposition as per mental health team. At this point in time, this patient does not appear to have an immediate medical contraindication to psychiatric admission, evaluation, consultation and placement. Patient has had his 1013 filled out by myself. Holding orders initiated. COVID swab ordered in anticipation of psychiatric placement. As needed medications are ordered. Patient remained suitable at this time for psychiatric placement, consultation and disposition. He does not appear to have an emergent medical condition present at this time. Critical care attestation.: If time is entered above; I have spent that time in minutes in the direct care of this critically ill patient, excluding procedure time. ED Disposition Clinical Impression: Suicidal ideations Disposition: [address] [place] [address] Is pt being admited?: No Does the pt Need Aspirin: No Condition: Stable
[2021-12-27 04:36] LABS: Bacteria,Urine 1+ /HPF (Negative); Mucus,Urine FEW /HPF; RBC,Urine < 1.0 /HPF (0.0-6.0); WBC,Urine < 1.0 /HPF (0.0-6.0)
[2021-12-27 04:38] LABS: Amphetamine Screen,Urine Negative; Benzodiazepines Screen,Urine Negative; Cannabinoid Screen,Urine Negative; Methadone Screen,Urine Negative; Opiate Screen,Urine Negative
[2021-12-27 04:45] LABS: Bilirubin,Urine Negative (Negative); Color,Urine Yellow (Yellow)
[2021-12-27 04:46] LABS: Blood,Urine Negative (Negative)
[2021-12-27 05:06] LABS: Basophils % (Auto) 0.3 % (0.0-1.8); Eosinophils # (Auto) 0.2 K/mm3 (0.0-0.4); Eosinophils % (Auto) 2.9 % (0.0-4.3); Hematocrit 43.7 % (35.5-45.6); Hemoglobin 14.3 gm/dl (11.8-15.2); Lymphocytes # (Auto) 1.7 K/mm3 (1.2-5.4); Mean Corpuscular HGB Conc 33 % (32-34); Mean Corpuscular Volume 86 fl (84-94); Monocytes # (Auto) 0.4 K/mm3 (0.0-0.8); Monocytes % (Auto) 7.5 % (0.0-7.3); Platelet Count 266 K/mm3 (140-440); Red Blood Count 5.06 M/mm3 (3.65-5.03)
[2021-12-27 05:21] LABS: Alanine Aminotransferase 19 units/L (7-56); Albumin 3.5 g/dL (3.9-5); BUN/Creatinine Ratio 5; Blood Urea Nitrogen 7 mg/dL (9-20); Calcium 9.1 mg/dL (8.4-10.2); Hemolysis Index 37
[2021-12-27 05:23] LABS: Cocaine Screen,Urine Positive
[2021-12-27 05:32] LABS: Free T4 (Free Thyroxine) 0.86 ng/dL (0.76-1.46)
--- NOTE | 2021-12-27 11:28 | Consultation ---
History of Present Illness - Reason for Consult Consult date: 12/27/21 Reason for consult: depression, SI - History of Present Psychiatric Illness The patient was seen today. He appears down. His affect is restricted. He says he is very depressed. He says he's been feeling suicidal and hearing voices for the last 2 days. He says he's staring to feel worse. He says voices are telling him that people are trying to kill him, to hurt himself and that everybody is against him. He says "I don't know what to do." The patient endorses cocaine use. He says he has a history of schizophrenia and been off meds about 2 months. The patient says he was on Invega sustenna but he is not willing to take it at this time. He says "I can't take that now. I want to try the pills." I ask him was he having any side effects or what particular reason he did not want it, he says "I just don't want it. I don't want to try that again." PAST PSYCHIATRIC HISTORY Diagnoses: Paranoid Schizophrenia Suicide attempts or Self-harm behavior: Denies Prior psychiatric hospitalizations: Yes Substance Abuse history: Cocaine Previous psychiatric medications tried: Invega sustenna Outpatient treatment: Yes PAST MEDICAL HISTORY: none reported Family Psychiatric History: None reported or documented SOCIAL HISTORY Marital Status: Single Living Arrangements: With self Employment Status: on disability Access to guns/weapons: none reported Education: 9th grade History of Abuse: none reported Legal History: Yes REVIEW OF SYSTEMS Constitutional: Negative for weight loss ENT: Negative for stridor Respiratory: Negative for cough or hemoptysis All other systems reviewed and are negative MENTAL STATUS EXAMINATION General Appearance and Behavior: Age appropriate, fair hygiene, wearing appropriate clothes, good eye contact, cooperative with questioning and irritable Cooperation: Participating but slightly Withdrawn Psychomotor Behavior: Psychomotor agitation Mood: depressed Affect and affective range:restricted Thought Process: Logical Thought Content: hallucinations, hopelessness Speech: normal tone and pace Suicidal Ideation: Endorses SI Homicidal Ideation: Denies HI Hallucinations: Auditory Delusions: Yes Impulse Control: Limited Insight and Judgment: Normal insight, limited judgement Memory: Intact Attention: normal Orientation: Alert, oriented, Assessment and Plan (1) Cocaine use disorder Current Visit: No Status: Acute (2) Schizophrenia Current Visit: No Status: Acute RECOMMENDATIONS 1013 Risperidone 0.5mg po BID Doxepin 10mg po qhs Vistaril 50mg po BID Prozac 10mg po qd Risks, benefits and alternatives of medications discussed with the patient, questions answered and consent obtained from patient. PSYCHOTHERAPY: Supportive psychotherapy provided MEDICAL: Per primary team DELIRIUM PRECAUTIONS: Please re-orient patient frequently, keep lights on during the day, and minimize benzodiazepines and opiates as these medications could w orsen patient's confusion. 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 Please contact with any questions and/or concerns. Case staffed with Dr. Leslie Medications and Allergies Allergies Allergy/AdvReac Type Severity Reaction Status Date / Time turkey Allergy Unknown Verified 11/11/19 10:36 seafood AdvReac Vomiting Uncoded 01/14/18 17:20 Home Medications Medication Instructions Recorded Confirmed Last Taken Type Divalproex Dr [Depwendi Trivedi] 500 mg PO BID #30 tablet 04/17/20 Unknown Rx Olanzapine [Olanzapine Odt] 10 mg PO QHS #30 tab.rapdis 04/17/20 Unknown Rx FLUoxetine [PROzac] 40 mg PO DAILY #30 capsule 06/22/20 Unknown Rx Mental Status Exam - Vital signs Last Vital Signs Temp 98.9 F 12/27/21 02:13 Pulse 98 H 12/27/21 02:13 Resp 18 12/27/21 02:13 BP 111/63 12/27/21 02:13 Pulse Ox 99 12/27/21 02:13 Results Result Diagrams: 12/27/21 04:40 12/27/21 04:40 Abnormal lab results 12/27/21 12/27/21 12/27/21 Range/Units 04:40 04:40 04:40 RBC 5.06 H (3.65-5.03) M/mm3 Wake % (Auto) 7.5 H (0.0-7.3) % Sodium 134 L (137-145) mmol/L BUN 7 L (9-20) mg/dL Glucose 132 H (75-100) mg/dL Albumin 3.5 L (3.9-5) g/dL Salicylates < 0.3 L (2.8-20.0) mg/dL Acetaminophen (10.0-30.0) ug/mL 12/27/21 Range/Units 04:40 RBC (3.65-5.03) M/mm3 Wake % (Auto) (0.0-7.3) % Sodium (137-145) mmol/L BUN (9-20) mg/dL Glucose (75-100) mg/dL Albumin (3.9-5) g/dL Salicylates (2.8-20.0) mg/dL Acetaminophen 5.0 L (10.0-30.0) ug/mL All other labs normal.
[2021-12-27] MEDS: risperiDONE 0.25 MG TAB PO SCH ×2 (11:54→22:09)
[2021-12-27] MEDS ORDERED: FLUoxetine 10 MG TAB PO SCH (12:00)
[2021-12-27] MEDS ORDERED: LORazepam 2 MG/ML VIAL IM PRN (16:52)
--- NOTE | 2021-12-27 16:53 | Event Note ---
Date: 12/27/21 The patient was evaluated in the emergency department for symptoms described in the history of present illness. He/she was evaluated in the context of the global COVID-19 pandemic, which necessitated consideration that the patient might be at risk for infection with the virus that causes COVID-19. Institutional protocols and algorithms that pertain to the evaluation of patients at risk for COVID-19 are in a state of rapid change based on information released by regulatory bodies including the CDC and federal and state organizations. These policies and algorithms were followed during the patient's care in the emergency department. Please note that these policies, procedures and recommendations changed on a rapid basis. Laboratory studies, vital signs, nursing documentation, ER documentation, and psychiatric documentation are reviewed and appreciated. Nursing team reports that patient is belligerent, and verbally abusive. The patient is resting comfortably on stretcher and does not appear to be in any acute distress The patient was deemed medically suitable for psychiatric disposition and placement during his initial ER evaluation. The patient continues to remain medically suitable for psychiatric placement and disposition. He is currently pending psychiatric placement. Vital Signs 12/27/21 12/27/21 12/27/21 01:55 02:12 02:13 Temperature 98.6 F 98.9 F Pulse Rate 74 98 H Respiratory 18 18 Rate Blood Pressure 125/74 Blood Pressure 111/63 [Left] O2 Sat by Pulse 97 98 99 Oximetry 12/27/21 12:01 Temperature 98.0 F Pulse Rate 69 Respiratory 18 Rate Blood Pressure Blood Pressure 137/80 [Left] O2 Sat by Pulse 96 Oximetry
[2021-12-27] MEDS ORDERED: DOXEPIN 10 MG CAP PO SCH (22:00)
--- NOTE | 2021-12-28 10:28 | Progress Note ---
Subjective - Reason for Consult Consult date: 12/28/21 Reason for consult: SI/depression - Chief Complaint Chief complaint: The patient was seen today. He is mumbling at times and difficult to understand. He is just staring at times. I'm having to ask him questions more than once. He endorses suicidal thoughts with no plan. The patient expresses being depressed. When asked about hallucinations, the patient just stares and mumbles. REVIEW OF SYSTEMS Constitutional: Negative for weight loss ENT: Negative for stridor Respiratory: Negative for cough or hemoptysis All other systems reviewed and are negative MENTAL STATUS EXAMINATION General Appearance and Behavior: Age appropriate, fair hygiene, wearing appropriate clothes, good eye contact, cooperative with questioning and irritable Cooperation: Participating but slightly Withdrawn Psychomotor Behavior: Psychomotor agitation Mood: depressed Affect and affective range:restricted Thought Process: Logical Thought Content: hallucinations, hopelessness Speech: normal tone and pace Suicidal Ideation: Endorses SI Homicidal Ideation: Denies HI Hallucinations: Auditory Delusions: Yes Impulse Control: Limited Insight and Judgment: Normal insight, limited judgement Memory: Intact Attention: normal Orientation: Alert, oriented, Assessment and Plan (1) Cocaine use disorder Current Visit: No Status: Acute (2) Schizophrenia Current Visit: No Status: Acute RECOMMENDATIONS 1013 Invega Sustenna 234mg IM x 1 Increase Risperidone 1mg po BID Doxepin 10mg po qhs Vistaril 50mg po BID Increase Prozac 30mg po qd Risks, benefits and alternatives of medications discussed with the patient, questions answered and consent obtained from patient. PSYCHOTHERAPY: Supportive psychotherapy provided MEDICAL: Per primary team DELIRIUM PRECAUTIONS: Please re-orient patient frequently, keep lights on during the day, and minimize benzodiazepines and opiates as these medications could worsen patient's confusion. 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 Please contact with any questions and/or concerns. Case staffed with Dr. Leslie Mental Status Exam - Vital signs Last Vital Signs Temp 98.0 F 12/27/21 12:01 Pulse 69 12/27/21 12:01 Resp 18 12/27/21 12:01 BP 137/80 12/27/21 12:01 Pulse Ox 96 12/27/21 12:01
[2021-12-28] MEDS ORDERED: FLUoxetine 10 MG TAB PO SCH (11:00)
[2021-12-28] MEDS ORDERED: risperiDONE 1 MG TAB PO SCH (11:00)
--- NOTE | 2021-12-28 11:28 | Event Note ---
Date: 12/28/21 vss , no distress , medically cleared , seen by psych , recommend psych management
[2021-12-28] MEDS ORDERED: PALIPERIDONE PALMITATE 234 MG/1.5 ML SYRINGE IM ONE (12:00)
[2021-12-28 12:51] VITALS: BP 118/81
== END 2021-12-28 14:44 ==
LOC: ED 00:38
DX: R45.851 Suicidal ideations (principal); F17.200 Nicotine dependence, unspecified, uncomplicated; Z20.822 Contact with and (suspected) exposure to COVID-19; Z91.014 Allergy to mammalian meats; Z91.013 Allergy to seafood; Z79.899 Other long term (current) drug therapy
CPT/HCPCS: 36415; 80053; 80307; 81001; 84439; 84443; 85025; 99285; J2426; Q0177; U0003; 80320; G0480